=== PATIENT | female | born 1950 | race Caucasian/White ===

== ENCOUNTER 2016-12-30 06:29 | Day surgery (SDC) | payer MEDICARE, BC ==
--- NOTE | 2016-12-30 06:26 | PCM.PREANE ---
Preanesthetic Assessment - Anesthesia/Transfusion/Family Hx Anesthesia History: Prior Anesthesia Without Reaction Family History of Anesthesia Reaction: No Transfusion History: No Prior Transfusion(s) Intubation History: Unknown - Review of Systems General: No Symptoms Pulmonary: No Symptoms Cardiovascular: No Symptoms (HTN), Palpitations (on occasion), Dyspnea on Exertion Gastrointestinal: No symptoms (GERD), Constipation, Difficulty swallowing (c/o phlegm in back of throat) Neurological: No Symptoms, Headache Other: Reports: None (CKD III), Easy Bruising, Thyroid Problems (hypothyroid), Sinus Problem (Allergic rhinitis), Neck Pain - Physical Assessment NPO Status Date: 12/29/16 NPO Status Time: 20:00 Pulse: 88 O2 Sat by Pulse Oximetry: 97 Respiratory Rate: 16 Blood Pressure: 141/78 Temperature: 36.1 C Height: 1.55 m Weight: 100 kg ASA Class: 2 Mental Status: Alert & Oriented x3 Airway Class: Mallampati = 2 Dentition: Reports: Normal Dentition, Partial, [place](s), Caries Thyro-Mental Finger Breadths: 3 Mouth Opening Finger Breadths: 3 ROM/Head Extension: Full Lungs: Clear to auscultation, Normal respiratory effort Cardiovascular: Regular Rate, Regular Rhythm, No Murmurs - Lab Values: Laboratory Last Values MRSA (PCR) Negative 12/21/16 15:49 Lab values reviewed and noted with elevated CR and BUN noted. ALL values within acceptable ranges to proceed with scheduled procedure. - Imaging/EKG Impressions: EK01/14/2016, sinus rhythm rate 86, T wave inversion avL, baseline wander V3. - Allergies Allergies/Adverse Reactions: Allergies Allergy/AdvReac Type Severity Reaction Status Date / Time amoxicillin Allergy Hives Verified 12/29/16 15:25 clavulanic acid Allergy Hives Verified 12/29/16 15:25 - Anesthesia Plan Pre-Op Medication Ordered: None - Acknowledgements Anesthesia Type Planned: MAC Pt an Appropriate Candidate for the Planned Anesthesia: Yes Alternatives and Risks of Anesthesia Discussed w Pt/Guardian: Yes Pt/Guardian Understands and Agrees with Anesthesia Plan: Yes PreAnesthesia Questionnaire HEENT History: Reports: Allergic Rhinitis, Sinusitis Cardiovascular History: Reports: High Cholesterol, Hypertension Respiratory History: Reports: SOB Gastrointestinal History: Reports: Chronic Constipation, GERD Genitourinary History: Reports: Other (See Below) Other Genitourinary History: CKD III CLERICAL ORDER FILLER History: Reports: None Musculoskeletal History: Reports: Gout, Osteoarthritis, Other (See Below) Other Musculoskeletal History: cervical disc disease, lumbar degenerative disc disease, gangion cyst, sacroiliac pain Neurological History: Reports: None Psychiatric History: Reports: Other (See Below) Other Psychiatric History: insomnia Endocrine/Metabolic History: Reports: Hypothyroidism Hematologic History: Reports: None Immunologic History: Reports: None Oncologic (Cancer) History: Reports: None Dermatologic History: Reports: None - Past Surgical History HEENT Surgical History: Reports: Naso-Sinus Surgery Cardiovascular Surgical History: Reports: Varicose GI Surgical History: Reports: Colonoscopy, EGD Musculoskeletal Surgical History: Reports: Other (See Below) Other Musculoskeletal Surgeries/Procedures:: L knee arhtroscopy, L knee replacement, L4L5 microdiscectomy Oncologic Surgical History: Reports: None - SUBSTANCE USE Smoking Status *Q: Never Smoker Recreational Drug Use History: No - HOME MEDS Home Medications: Home Meds Allopurinol [Zyloprim] 300 mg PO DAILY 12/29/16 [History] Cyclobenzaprine HCl 10 mg PO BID PRN 12/29/16 [History] Fish Oil/[place]-3 Fatty Acids [Fish Oil 1,000 MG] 1 cap PO DAILY 12/29/16 [ History] Fluticasone Propionate 1 spray NASBOTH BID 12/29/16 [History] Furosemide 40 mg PO DAILY 12/29/16 [History] Gabapentin 300 mg PO DAILY 12/29/16 [History] Levothyroxine Sodium 50 mcg PO DAILY 12/29/16 [History] Omeprazole 20 mg PO DAILY 12/29/16 [History] Potassium Chloride 20 meq PO BID 12/29/16 [History] Valsartan/Hydrochlorothiazide [Valsartan-Hctz 160-12.5 mg Tab] 1 tab PO DAILY [History] Zolpidem Tartrate [Zolpidem Tartrate ER] 12.5 mg PO DAILY 12/29/16 [History] atorvaSTATin Calcium [Atorvastatin Calcium] 20 mg PO DAILY 12/29/16 [History] traZODone HCl [Trazodone HCl] 50 mg PO BEDTIME 12/29/16 [History] Hydrocodone/Acetaminophen [[place] 5-325 Tablet] 1 - 2 each PO Q6H PRN #10 tablet 12/30/16 [Rx] - CURRENT (IN HOUSE) MEDS Current Meds: Current Medications Lactated Ringer's (Ringers, Lactated) 1,000 mls @ 125 mls/hr IV ASDIRECTED NICOLAS Stop: 12/30/16 23:00 Lidocaine/Sodium Bicarbonate (Buffered Lidocaine 1% In Ns 8.4%) 0.25 ml .XX ONETIME PRN PRN Reason: Prior to IV Start Stop: 12/30/16 18:00 Sodium Chloride (Saline Flush) 10 ml FLUSH ASDIRECTED PRN PRN Reason: Keep Vein Open Stop: 12/30/16 18:00
[~2016-12-30 06:29] MED LIST: Lactated Ringers 1,000 ML IV SCH; Lidocaine 1%/Sod Bicarbonate in NS 8.4% 1 ML Syringe PRN; Sodium Chloride 0.9% 10 ML Syringe FLUSH PRN
[2016-12-30] MEDS ORDERED: Bupivacaine 0.25% 30 ML SDV ONE (06:49)
[2016-12-30] MEDS ORDERED: Lidocaine 1% 50 ML MDV ONE (06:49)
[2016-12-30] MEDS ORDERED: Lidocaine 1% 4 ML ONE (06:53)
[2016-12-30] MEDS ORDERED: fentaNYL 100 MCG/2 ML SDV ONE (06:54)
[2016-12-30] MEDS ORDERED: Propofol 200 MG/20 ML SDV ONE (06:54)
[2016-12-30] MEDS ORDERED: Midazolam 1 MG/ML 2 ML SDV ONE (06:54)
[2016-12-30] MEDS ORDERED: ceFAZolin 1 GM Vial ONE ×2 (06:56)
[2016-12-30] MEDS ORDERED: Ondansetron 4 MG/2 ML SDV IVPUSH PRN (07:29)
[2016-12-30] MEDS ORDERED: fentaNYL 100 MCG/2 ML SDV IVPUSH PRN (07:29)
--- NOTE | 2016-12-30 08:04 | PCM48HPAN ---
Post Anesthesia Note - EVALUATION WITHIN 48HRS OF ANESTHETIC Vital Signs in Normal Range: Yes Patient Participated in Evaluation: Yes Respiratory Function Stable: Yes Airway Patent: Yes Cardiovascular Function Stable: Yes Hydration Status Stable: Yes Pain Control Satisfactory: Yes Nausea and Vomiting Control Satisfactory: Yes Mental Status Recovered: Yes
[2016-12-30 08:06] VITALS: BP 101/70
--- NOTE | 2017-01-05 22:05 | PCM.OPNOTE ---
- General Post-Op/Procedure Note Date of Surgery/Procedure: 12/30/16 Operative Procedure(s): right ring finger pip joint mucinous cyst excision Pre Op Diagnosis: right long finger mucinous cyst PIP joint Post-Op Diagnosis: Same Anesthesia Technique: Local, MAC Primary Surgeon: Sree Christina Anesthesia Provider: Lillian Pino Chlorinator Operator: Yesi Fountain EBL in mLs: 5 Complications: None Condition: Good
--- NOTE | 2017-01-05 22:53 | OR ---
DATE OF OPERATION: 12/30/2016 SURGEON: Sree Christina MD OPERATION PERFORMED: Right long finger PIP joint mucinous cyst excision. PREOPERATIVE DIAGNOSIS: Right long finger mucinous cyst PIP joint. POSTOPERATIVE DIAGNOSIS: Right long finger mucinous cyst PIP joint. ANESTHESIA: Local MAC. ANESTHESIA PROVIDER: Lillian Pino. OCCUPATIONAL THERAPIST'S ASSISTANT: Yesi Fountain PA-C ESTIMATED BLOOD LOSS: 5 mL. COMPLICATIONS: None. CONDITION: Stable. DESCRIPTION OF PROCEDURE: The patient was identified in the preop holding area. Proper site was marked and identified by the surgeon. The patient was taken back to the operating theater, where after adequate anesthesia, the patient's right upper extremity was sterilely prepped and draped in the usual sterile fashion. OR time-out was performed. The patient received 2 g IV Ancef. At this time, the right upper extremity had Esmarch used as a tourniquet on the forearm and then using 0.25% Marcaine 1% lidocaine, a ring block was done around the right long finger along the flexor tendon sheath block. At this time, a dorsal lateral incision was made over the PIP joint. The blunt dissection was taken down to the joint capsule, there was noted to be mucinous cyst right at that level. Using a Napaimute blade, I was able to excise the cyst. The small rent in the capsule was identified. A small piece of bone spur was then rongeured off. The rent in the capsule was then sutured using 4-0 Vicryl and then 3-0 Vicryl was then used for the skin along with a 4-0 nylon. Adequate saline was irrigated over the wound. A sterile soft dressing was applied. The patient tolerated the procedure well and was sent to PACU in stable condition. MMODAL /[id number] LILLIAN
== END 2016-12-30 08:25 | disposition home or self-care (01) ==
LOC: JD.SDS 06:29
PROVIDERS: ATTEND Orthopaedic Surgery
DX: M25.841 Other specified joint disorders, right hand (principal); I12.9 Hypertensive chronic kidney disease with stage 1 through stage 4 chronic kidney disease, or unspecified chronic kidney disease; N18.3 Chronic kidney disease, stage 3 (moderate); E78.00 Pure hypercholesterolemia, unspecified; K21.9 Gastro-esophageal reflux disease without esophagitis; E03.9 Hypothyroidism, unspecified; Z88.1 Allergy status to other antibiotic agents; Z88.8 Allergy status to other drugs, medicaments and biological substances; Z96.652 Presence of left artificial knee joint; Z98.890 Other specified postprocedural states; Z79.899 Other long term (current) drug therapy
CPT/HCPCS: 26160; 87641; J0690; J2250; J3010; J7120; 01810; J2704; J3490

== ENCOUNTER 2019-08-15 06:33 | Inpatient (IN) | payer MEDICARE, BC ==
--- NOTE | 2019-08-14 12:05 | PCM.PREANE ---
Preanesthetic Assessment - Anesthesia/Transfusion/Family Hx Anesthesia History: Prior Anesthesia Without Reaction Family History of Anesthesia Reaction: No Transfusion History: No Prior Transfusion(s) Intubation History: Unknown - Review of Systems General: No Symptoms Pulmonary: No Symptoms (emphysematous changes noted on CXR) Cardiovascular: No Symptoms (HTN) Gastrointestinal: No Symptoms (GERD/small hiatal hernia noted), Constipation, Difficulty Swallowing ((c/o phlegm in back of throat)) Neurological: No Symptoms (History of chronic lower back pain 5/10 Right shoulder with mobility is 6/10.), Headache Other: Reports: None ((CKD III)), Easy Bruising, Thyroid Problems (hypothyroid) , Sinus Problem (allergic rhinitis), Neck Pain (History of Cervical disk disease ) - Physical Assessment NPO Status Date: 08/14/19 NPO Status Time: 20:30 Vital Signs: HR:87 BP:111/66 Sat:100% Temp:97.4 Resp:16 Height: 1.57 m Weight: 89.358 kg ASA Class: 2 Mental Status: Alert & Oriented x3 Airway Class: Mallampati = 2 Dentition: Reports: Normal Dentition, Dentures (bottom), Missing Tooth/Teeth, Caries Thyro-Mental Finger Breadths: 3 Mouth Opening Finger Breadths: 3 ROM/Head Extension: Full Lungs: Clear to Auscultation, Normal Respiratory Effort Cardiovascular: Regular Rate, Regular Rhythm, No Murmurs - Lab Values: Laboratory Last Values MRSA (PCR) Negative 08/01/19 14:46 All labs reviewed and noted and within acceptable ranges to proceed with scheduled procedure. - Imaging/EKG Impressions: CXR: small hiatal hernia, emphysematous changes noted. EKG: SR rate=89 - Allergies Allergies/Adverse Reactions: Allergies Allergy/AdvReac Type Severity Reaction Status Date / Time amoxicillin Allergy Hives Verified 08/14/19 15:42 clavulanic acid Allergy Hives Verified 08/14/19 15:42 - Anesthesia Plan Pre-Op Medication Ordered: Other (Preop Meds all p.o.: lyrica, oxycodone, tylenol @0705) - Acknowledgements Anesthesia Type Planned: General Anesthesia (Right ISB under US guidance for post operative pain control requested by Dr. Christina.) Pt an Appropriate Candidate for the Planned Anesthesia: Yes Alternatives and Risks of Anesthesia Discussed w Pt/Guardian: Yes Pt/Guardian Understands and Agrees with Anesthesia Plan: Yes PreAnesthesia Questionnaire HEENT History: Reports: Allergic Rhinitis, Sinusitis Cardiovascular History: Reports: High Cholesterol, Hypertension Respiratory History: Reports: SOB Gastrointestinal History: Reports: Chronic Constipation, GERD Genitourinary History: Reports: Other (See Below) Other Genitourinary History: CKD III CADET DECK History: Reports: None Musculoskeletal History: Reports: Gout, Osteoarthritis, Other (See Below) Other Musculoskeletal History: cervical disc disease, lumbar degenerative disc disease, gangion cyst, sacroiliac pain Neurological History: Reports: None Psychiatric History: Reports: Other (See Below) Other Psychiatric History: insomnia Endocrine/Metabolic History: Reports: Hypothyroidism Hematologic History: Reports: None Immunologic History: Reports: None Oncologic (Cancer) History: Reports: None Dermatologic History: Reports: None - Past Surgical History HEENT Surgical History: Reports: Naso-Sinus Surgery Cardiovascular Surgical History: Reports: Varicose GI Surgical History: Reports: Colonoscopy, EGD Musculoskeletal Surgical History: Reports: Other (See Below) Other Musculoskeletal Surgeries/Procedures:: L knee arhtroscopy, L knee replacement, L4L5 microdiscectomy Oncologic Surgical History: Reports: None - HOME MEDS Home Medications: Home Meds Allopurinol [Zyloprim] 300 mg PO DAILY 12/29/16 [History] Fish Oil/[place]-3 Fatty Acids [Fish Oil 1,000 MG] 1 cap PO DAILY 12/29/16 [ History] Furosemide 40 mg PO DAILY PRN 12/29/16 [History] Levothyroxine Sodium 50 mcg PO DAILY 12/29/16 [History] Potassium Chloride 20 meq PO DAILY PRN 12/29/16 [History] Zolpidem Tartrate [Zolpidem Tartrate ER] 12.5 mg PO DAILY 12/29/16 [History] atorvaSTATin Calcium [Atorvastatin Calcium] 20 mg PO DAILY 12/29/16 [History] traZODone HCl [Trazodone HCl] 50 mg PO BEDTIME 12/29/16 [History] Cholecalciferol (Vitamin D3) [Vitamin D3] 5,000 unit PO DAILY 08/14/19 [History] Cyclobenzaprine [Flexeril] 10 mg PO BID 08/14/19 [History] Diclofenac Sodium [Voltaren 1% Gel] 1 dose TOP QID 08/14/19 [History] Fluticasone Propionate [Flonase] 1 dose NASBOTH BID 08/14/19 [History] Losartan/Hydrochlorothiazide [Losartan-HCTZ 100-12.5 MG] 1 tab PO DAILY [History] Omeprazole 40 mg PO DAILY 08/14/19 [History] Triamcinolone Acetonide [Triamcinolone Acetonide 0.1% Crm] 1 dose TOP BID [History] - CURRENT (IN HOUSE) MEDS Current Meds: Current Medications Lactated Ringer's (Ringers, Lactated) 1,000 mls @ 125 mls/hr IV ASDIRECTED NICOLAS Stop: 08/15/19 23:00 Lidocaine/Sodium Bicarbonate (Buffered Lidocaine 1% In Ns 8.4%) 0.25 ml IDERM ONETIME PRN PRN Reason: Prior to IV Start Stop: 08/15/19 18:00 Sodium Chloride (Saline Flush) 10 ml FLUSH ASDIRECTED PRN PRN Reason: Keep Vein Open Stop: 08/15/19 18:00
[~2019-08-15 06:33] MED LIST changes: +Acetaminophen 325 MG Tab PO SCH; -Lactated Ringers 1,000 ML IV SCH; -Lidocaine 1%/Sod Bicarbonate in NS 8.4% 1 ML Syringe PRN; +Pregabalin 25 MG Cap PO SCH; -Sodium Chloride 0.9% 10 ML Syringe FLUSH PRN; +oxyCODONE ER 10 MG TAB.ER PO SCH
[2019-08-15] MEDS ORDERED: Ropivacaine 0.5% 5 MG/ML 30 ML SDV ONE (06:38)
[2019-08-15] MEDS ORDERED: EPINEPHrine 1 MG/ML SDV ONE (06:38)
[2019-08-15] MEDS ORDERED: Lidocaine 1% 2 ML ONE (06:38)
--- NOTE | 2019-08-15 06:46 | PCM.CONS ---
H&P History of Present Illness - General Date of Service: 08/15/19 Source of Information: Patient, Old Records, Provider, RN, RN Notes Reviewed History Limitations: Reports: No Limitations - History of Present Illness Initial Comments - Free Text/Narative: Tiara Azul is a 69 yo female patient of Dr. Christina who is post-operative day 0 of right RTSA. Hospital medicine was consulted for post-operative medical care of the following listed medical conditions. At this time she is resting comfortably in bed. Pain is controlled. She denies any chest pain, shortness of breath, palpitations, nausea, or vomiting. She carries a history of: Chronic LBP , CKD3, Osteopenia, GERD, GOUT, HLD, HTN, Hypothyroidism, Insomnia, Venous insufficiency, Venous stasis dermatitis, Anemia, Emphysema, Cervical disk disease, Lumbar DJD, sacroiliac pain, chronic constipation. She is a full code. Her primary care provider is Shirley Padilla NP. - Related Data Allergies/Adverse Reactions: Allergies Allergy/AdvReac Type Severity Reaction Status Date / Time amoxicillin Allergy Hives Verified 08/15/19 14:33 clavulanic acid Allergy Hives Verified 08/15/19 14:33 Home Medications: Home Meds Allopurinol [Zyloprim] 300 mg PO DAILY 12/29/16 [History] Fish Oil/[place]-3 Fatty Acids [Fish Oil 1,000 MG] 1 cap PO DAILY 12/29/16 [ History] Furosemide 40 mg PO DAILY PRN 12/29/16 [History] Levothyroxine Sodium 50 mcg PO DAILY 12/29/16 [History] Potassium Chloride 20 meq PO DAILY PRN 12/29/16 [History] Zolpidem Tartrate [Zolpidem Tartrate ER] 12.5 mg PO BEDTIME 12/29/16 [History] atorvaSTATin Calcium [Atorvastatin Calcium] 20 mg PO DAILY 12/29/16 [History] traZODone HCl [Trazodone HCl] 50 mg PO BEDTIME 12/29/16 [History] Cholecalciferol (Vitamin D3) [Vitamin D3] 5,000 unit PO DAILY 08/14/19 [History] Cyclobenzaprine [Flexeril] 10 mg PO BID 08/14/19 [History] Diclofenac Sodium [Voltaren 1% Gel] 1 dose TOP QID 08/14/19 [History] Fluticasone Propionate [Flonase] 1 dose NASBOTH BID 08/14/19 [History] Losartan/Hydrochlorothiazide [Losartan-HCTZ 100-12.5 MG] 1 tab PO DAILY [History] Omeprazole 40 mg PO DAILY 08/14/19 [History] Triamcinolone Acetonide [Triamcinolone Acetonide 0.1% Crm] 1 dose TOP BID [History] Past Medical History HEENT History: Reports: Allergic Rhinitis, Sinusitis Cardiovascular History: Reports: High Cholesterol, Hypertension Respiratory History: Reports: SOB Gastrointestinal History: Reports: Chronic Constipation, GERD Genitourinary History: Reports: Other (See Below) Other Genitourinary History: CKD III 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 History: Reports: None Musculoskeletal History: Reports: Arthritis, Gout, Osteoarthritis, Other (See Below) Other Musculoskeletal History: cervical disc disease, lumbar degenerative disc disease, gangion cyst, sacroiliac pain Neurological History: Reports: Other (See Below) Other Neuro History: cervical disc disease, lumbar degnerative disc disease, neck pain Psychiatric History: Reports: Other (See Below) Other Psychiatric History: insomnia Endocrine/Metabolic History: Reports: Hypothyroidism Hematologic History: Reports: Anemia Immunologic History: Reports: None Oncologic (Cancer) History: Reports: None Dermatologic History: Reports: Other (See Below) Other Dermatologic History: venous stasis dermatitis, perirectal abcess with I&D - Past Surgical History HEENT Surgical History: Reports: Naso-Sinus Surgery Cardiovascular Surgical History: Reports: Varicose Respiratory Surgical History: Reports: None GI Surgical History: Reports: Colonoscopy, EGD Female Surgical History: Reports: None Male Surgical History: Reports: None Endocrine Surgical History: Reports: None Other Neurological Surgeries/Procedures: 4 back surgery Musculoskeletal Surgical History: Reports: Knee Replacement, Other (See Below) Other Musculoskeletal Surgeries/Procedures:: L knee arhtroscopy, L knee replacement, L4L5 microdiscectomy Oncologic Surgical History: Reports: None Social & Family History - Tobacco Use Smoking Status *Q: Never Smoker Second Hand Smoke Exposure: No - Caffeine Use Caffeine Use: Reports: Coffee - Recreational Drug Use Recreational Drug Use: No H&P Review of Systems - Review of Systems: Review Of Systems: See Below General: Reports: No Symptoms. Denies: Fever, Chills HEENT: Reports: Sore Throat (mild). Denies: Headaches Pulmonary: Reports: No Symptoms. Denies: Shortness of Breath, Wheezing, Pleuritic Chest Pain, Cough, Sputum Cardiovascular: Reports: Edema (chronic left leg). Denies: Chest Pain, Palpitations, Dyspnea on Exertion Gastrointestinal: Reports: No Symptoms. Denies: Abdominal Pain, Constipation, Diarrhea, Nausea, Vomiting Genitourinary: Reports: No Symptoms. Denies: Pain Musculoskeletal: Reports: Shoulder Pain Skin: Reports: No Symptoms. Denies: Cyanosis Psychiatric: Reports: No Symptoms. Denies: Confusion Neurological: Reports: No Symptoms. Denies: Difficulty Walking, Weakness, Gait Disturbance Hematologic/Lymphatic: Reports: No Symptoms Immunologic: Reports: No Symptoms Exam - Exam Exam: See Below - Exam Quality Assessment: Supplemental Oxygen, DVT Prophylaxis General: Alert, Oriented, Cooperative. No: Mild Distress HEENT: Conjunctiva Clear, EACs Clear, EOMI, Hearing Intact, Mucosa Moist & [place] , Nares Patent, Posterior Pharynx Clear, PERRLA Neck: Supple, Trachea Midline Lungs: Clear to Auscultation, Normal Respiratory Effort Cardiovascular: Regular Rate, Regular Rhythm GI/Abdominal Exam: Normal Bowel Sounds, Soft, Non-Tender, No Distention (Female) Exam: Deferred Rectal (Female) Exam: Deferred Back Exam: Normal Inspection, Full Range of Motion Extremities: Normal Capillary Refill, Pedal Edema (left leg - chronic ), Arm Pain (Right shoulder ), Limited Range of Motion, Other (Bandage in place on right shoulder. Bandage is dry and intact. Cooling pack in place. Sling and swathe in place.) Peripheral Pulses: 2+: Radial (L), Radial (R), Dorsalis Pedis (L), Dorsalis Pedis (R) Skin: Warm, Dry, Intact Neurological: Cranial Nerves Intact (Grossly ) Neuro Extensive - Mental Status: Alert, Oriented x3, Normal Mood/Affect Consult PN Assessment/Plan POD#: 0 Procedures: Procedures AQUATIC THERAPY/EXERCISES (05/12/16) ASSAY OF BLOOD/URIC ACID (04/06/19) ASSAY OF CREATININE (09/16/14) ASSAY OF FERRITIN (06/29/19) ASSAY OF IRON (06/29/19) ASSAY OF PARATHORMONE (03/15/18) ASSAY OF PHOSPHORUS (06/17/16) ASSAY OF PROTEIN URINE (03/09/19) ASSAY OF SERUM ALBUMIN (06/17/16) ASSAY OF TRANSFERRIN (06/29/19) ASSAY OF URINE CREATININE (03/09/19) ASSAY THYROID STIM HORMONE (06/29/19) C-REACTIVE PROTEIN (04/06/19) COMPLETE CBC AUTOMATED (06/29/19) COMPLETE CBC W/AUTO DIFF WBC (03/09/19) COMPREHEN METABOLIC PANEL (06/29/19) DXA BONE DENSITY AXIAL (05/19/15) HPYLORI STOOL IA (06/06/18) LIPID PANEL (06/29/19) MANUAL THERAPY 1/> REGIONS (05/12/16) MASSAGE THERAPY (04/21/16) METABOLIC PANEL TOTAL CA (12/20/16) MICROBE SUSCEPTIBLE FABRICIO (11/23/13) MR-STAPH DNA AMP PROBE (12/30/16) MRI JOINT UPR EXTREM W/O DYE (06/18/19) MRI LUMBAR SPINE W/O DYE (07/13/19) NEUROMUSCULAR REEDUCATION (04/21/16) OFFICE/OUTPATIENT VISIT EST (06/05/18) OFFICE/OUTPATIENT VISIT EST (02/21/18) PT EVALUATION (03/24/16) RBC SED RATE AUTOMATED (04/06/19) REMOVE TENDON SHEATH LESION (12/30/16) RENAL FUNCTION PANEL (03/09/19) ROUTINE VENIPUNCTURE (06/29/19) THERAPEUTIC EXERCISES (05/12/16) THROMBOPLASTIN TIME PARTIAL (11/23/13) ULTRASOUND THERAPY (03/24/16) UR ALBUMIN QUANTITATIVE (09/29/16) URINALYSIS AUTO W/O SCOPE (03/30/16) URINALYSIS AUTO W/SCOPE (03/09/19) URINE BACTERIA CULTURE (11/23/13) US EXAM ABDO BACK WALL COMP (06/17/15) VITAMIN B-12 (12/25/18) VITAMIN D 25 HYDROXY (03/15/18) X-RAY EXAM HIP UNI 2-3 VIEWS (07/07/17) X-RAY EXAM NECK SPINE 2-3 VW (02/21/18) X-RAY EXAM SI JOINTS 3/> VWS (04/29/16) (1) S/p reverse total shoulder arthroplasty SNOMED Code(s): 443622789, 599835009 Code(s): Z96.619 - PRESENCE OF UNSPECIFIED ARTIFICIAL SHOULDER JOINT Priority: High Current Visit: Yes Qualifiers: Laterality: right Qualified Code(s): Z96.611 - Presence of right artificial shoulder joint (2) Osteoarthritis SNOMED Code(s): 304865441 Code(s): M19.90 - UNSPECIFIED OSTEOARTHRITIS, UNSPECIFIED SITE Priority: High Current Visit: Yes Qualifiers: Osteoarthritis location: shoulder Osteoarthritis type: primary Laterality : right Qualified Code(s): M19.011 - Primary osteoarthritis, right shoulder (3) Cervical spine disease SNOMED Code(s): 343423307 Code(s): M48.9 - SPONDYLOPATHY, UNSPECIFIED Priority: Low Current Visit: No (4) Chronic low back pain SNOMED Code(s): 644218055 Code(s): M54.5 - LOW BACK PAIN; G89.29 - OTHER CHRONIC PAIN Priority: Low Current Visit: No Qualifiers: Back pain laterality: unspecified Sciatica presence: unspecified whether sciatica present Qualified Code(s): M54.5 - Low back pain; G89.29 - Other chronic pain (5) CKD (chronic kidney disease) stage 3, GFR 30-59 ml/min SNOMED Code(s): 392916296 Code(s): N18.3 - CHRONIC KIDNEY DISEASE, STAGE 3 (MODERATE) Priority: Medium Current Visit: No (6) Osteopenia SNOMED Code(s): 281777913 Code(s): M85.80 - OTH DISRD OF BONE DENSITY AND STRUCTURE, UNSPECIFIED SITE Priority: Medium Current Visit: No Qualifiers: Osteopenia location: unspecified Qualified Code(s): M85.80 - Other specified disorders of bone density and structure, unspecified site (7) GERD (gastroesophageal reflux disease) SNOMED Code(s): 901020047 Code(s): K21.9 - GASTRO-ESOPHAGEAL REFLUX DISEASE WITHOUT ESOPHAGITIS Priority: Low Current Visit: No Qualifiers: Esophagitis presence: esophagitis presence not specified Qualified Code(s) : K21.9 - Gastro-esophageal reflux disease without esophagitis (8) Gout SNOMED Code(s): 41507299 Code(s): M10.9 - GOUT, UNSPECIFIED Priority: Low Current Visit: No Qualifiers: Gout site: unspecified site Gout etiology: unspecified cause Chronicity: unspecified Qualified Code(s): M10.9 - Gout, unspecified (9) HLD (hyperlipidemia) SNOMED Code(s): 72003183 Code(s): E78.5 - HYPERLIPIDEMIA, UNSPECIFIED Priority: Low Current Visit : No Qualifiers: Hyperlipidemia type: unspecified Qualified Code(s): E78.5 - Hyperlipidemia , unspecified (10) HTN (hypertension) SNOMED Code(s): 73366045 Code(s): I10 - ESSENTIAL (PRIMARY) HYPERTENSION Priority: Medium Current Visit: No Qualifiers: Hypertension type: unspecified Qualified Code(s): I10 - Essential (primary ) hypertension (11) Hypothyroidism SNOMED Code(s): 39412498 Code(s): E03.9 - HYPOTHYROIDISM, UNSPECIFIED Priority: Low Current Visit : No Qualifiers: Hypothyroidism type: unspecified Qualified Code(s): E03.9 - Hypothyroidism , unspecified (12) Insomnia SNOMED Code(s): 357545654 Code(s): G47.00 - INSOMNIA, UNSPECIFIED Priority: Low Current Visit: No Qualifiers: Insomnia type: unspecified Qualified Code(s): G47.00 - Insomnia, unspecified (13) Venous insufficiency SNOMED Code(s): 83297751 Code(s): I87.2 - VENOUS INSUFFICIENCY (CHRONIC) (PERIPHERAL) Priority: Low Current Visit: No (14) Venous stasis dermatitis SNOMED Code(s): 93935994 Code(s): I87.2 - VENOUS INSUFFICIENCY (CHRONIC) (PERIPHERAL) Priority: Low Current Visit: No Qualifiers: Laterality: unspecified laterality Qualified Code(s): I87.2 - Venous insufficiency (chronic) (peripheral) (15) Anemia SNOMED Code(s): 297737703 Code(s): D64.9 - ANEMIA, UNSPECIFIED Priority: Low Current Visit: No Qualifiers: Anemia type: unspecified type Qualified Code(s): D64.9 - Anemia, unspecified (16) Emphysema of lung SNOMED Code(s): 11100348 Code(s): J43.9 - EMPHYSEMA, UNSPECIFIED Current Visit: Yes (17) Chronic constipation SNOMED Code(s): 129593280 Code(s): K59.09 - OTHER CONSTIPATION Current Visit: Yes (18) Lumbar disc disease SNOMED Code(s): 567389671 Code(s): M51.9 - UNSP THORACIC, THORACOLUM AND LUMBOSACR INTVRT DISC DISORDER Current Visit: Yes Problem List Initiated/Reviewed/Updated: Yes Plan: I/P: Acute: S/P right reverse total shoulder arthroplasty - post-operative day 0 -DVT prophylaxis and pain management per primary care team -PT/OT -IS/RT -Monitor oxygen saturation -Titrate oxygen as needed -Home medications reviewed -Vital signs stable -Monitor labs -Pre-operative Hgb was 12.1 -Pre-operative GFR was 45 -Pre-operative creatinine was 1.2 Osteoarthritis of right shoulder -Pain management per primary care team Chronic: Chronic LBP CKD3 Osteopenia GERD GOUT HLD HTN Hypothyroidism Insomnia Venous insufficiency Venous stasis dermatitis Anemia Emphysema Cervical disk disease Lumbar DJD Sacroiliac pain Chronic constipation Plan: CM for discharge planning GI prophylaxis Home medications as indicated Other orders as listed above Routine AM labs She is a full code. Her PCP is Shirley Padilla NP Thank you for allowing us to participate in the care of this patient!! Requesting Provider: Dr. Christina Date Consult Requested: 08/15/19 Patient History Reviewed: Yes Admission H&P Reviewed: Yes Notified Requestor: Yes
[2019-08-15] MEDS ORDERED: Midazolam 1 MG/ML 2 ML SDV ONE (06:51)
[2019-08-15] MEDS ORDERED: Propofol 200 MG/20 ML SDV ONE (06:51)
[2019-08-15] MEDS ORDERED: Lactated Ringers 1,000 ML ONE ×2 (06:51→09:57)
[2019-08-15] MEDS ORDERED: Ondansetron 4 MG/2 ML SDV ONE (06:51)
[2019-08-15] MEDS ORDERED: Lidocaine 1% 6 ML ONE (06:51)
[2019-08-15] MEDS ORDERED: fentaNYL 250 MCG/5 ML SDV ONE (06:51)
[2019-08-15] MEDS ORDERED: Dexamethasone 4 MG/ML 5 ML MDV ONE (06:51)
[2019-08-15] MEDS ORDERED: Rocuronium 50 MG/5 ML Vial ONE (06:51)
[2019-08-15] MEDS ORDERED: Morphine 8 MG, EPINEPHrine 0.3 MG, Cefuroxime 750 MG, Ketorolac 30 MG, Sodium Chloride ... PRN ×5 (06:57)
[2019-08-15] MEDS ORDERED: Ketorolac 15 MG/ML SDV IVPUSH PRN (06:57)
[2019-08-15] MEDS ORDERED: Sennosides 8.6 MG Tab PO PRN (06:59)
[2019-08-15] MEDS ORDERED: Ondansetron 4 MG/2 ML SDV IVPUSH PRN ×2 (06:59→09:00)
[2019-08-15] MEDS ORDERED: Magnesium Hydroxide 400 MG/5 ML Susp 30 ML Cup PO PRN (06:59)
[2019-08-15] MEDS ORDERED: Naloxone 0.4 MG/ML SDV IVPUSH PRN (06:59)
[2019-08-15] MEDS ORDERED: Bisacodyl 5 MG Tab PO PRN (06:59)
[2019-08-15] MEDS ORDERED: Lactated Ringers 1,000 ML IV SCH (07:00)
[2019-08-15] MEDS ORDERED: Lidocaine 1%/Sod Bicarbonate in NS 8.4% 1 ML Syringe IDERM PRN (07:00)
[2019-08-15] MEDS ORDERED: Sodium Chloride 0.9% 10 ML Syringe FLUSH PRN (07:00)
[2019-08-15] MEDS ORDERED: ceFAZolin 1 GM Vial ONE (07:29)
--- NOTE | 2019-08-15 08:07 | PCM.SN ---
- Free Text/Narrative Note: Date: 08/15/2019 Time Out: 0740 Start: 0740 Stop: 0750 Surgical Procedure: Right Reverse Total Shoulder Arthroplasty Diagnosis Right Shoulder OA Current Procedure: Right interscalene block under US guidance for postoperative pain control requested by Dr. Christina. Patient chart reviewed, risk/benefits discussed with patient, consent obtained. Patient positioned supine, monitors/alarms on, oxygen placed via nasal cannula at 2 LPM. IV sedation administered: Versed 1mg IV, Fentanyl 50mcg IV given in preop prior to block placement. Right shoulder prepped with two chloropreps. Sterile drapes placed with aseptic technique noted. Under US guidance, right subclavian artery visualized along with the right brachial plexus. Plexus followed up to C6 cricoid level, and area localized with 2mls of 1% lidocaine. 22gauge 2 inch stimiplex needle advanced under US with 0.6mV with stimulation of biceps noted. Good stimulation noted with decreased voltage and absent at 0.3mVs. 1ml of Normal Saline injected with loss of stimulation noted to confirm needle not placed intraneurally. Incremental dosing of 5mls with negative aspiration noted prior to each injection of 0.5% ropivacaine with 1:200,000 epinephrine. Total volume=30mls. Please refer to nurses noted for vital signs. Lillian Pino CRNA
[2019-08-15] MEDS ORDERED: ePHEDrine 50 MG/ML SDV IVPUSH PRN (09:00)
[2019-08-15] MEDS ORDERED: fentaNYL 100 MCG/2 ML SDV IVPUSH PRN (09:00)
[2019-08-15] MEDS ORDERED: diphenhydrAMINE 50 MG/ML SDV IVPUSH PRN (09:00)
[2019-08-15] MEDS ORDERED: HYDROmorphone 0.5 MG/0.5 ML Syringe IVPUSH PRN (09:00)
[2019-08-15] MEDS ORDERED: Albuterol 0.083% 2.5 MG/3 ML Neb Soln NEB PRN (09:00)
[2019-08-15] MEDS ORDERED: Phenylephrine 1 MG in Sodium Chloride 0.9% 10 ML IV PRN (09:00)
[2019-08-15] MEDS: Iodine/Sodium Iodide 2% Tincture 30 ML Bottle ONE ×2 (09:35→09:54)
[2019-08-15] MEDS: ceFAZolin 1 GM Vial ONE ×2 (09:35→09:56)
[2019-08-15] MEDS: Vancomycin 1 GM SDV ONE ×2 (09:37→10:02)
[2019-08-15] MEDS ORDERED: Potassium Chloride 20 MEQ Tab.ER PO PRN (10:40)
--- NOTE | 2019-08-15 10:46 | PCM.POSTAN ---
POST ANESTHESIA ASSESSMENT - MENTAL STATUS Mental Status: Alert - VITAL SIGNS Vital Signs: Last Vital Signs Temp 97.8 08/15/19 1036 Pulse 80 08/15/19 1036 Resp 10 08/15/19 1036 BP 131/76 08/15/19 1036 Pulse Ox 95% 08/15/19 1036 - RESPIRATORY Respiratory Status: Respiratory Rate WNL, Airway Patent, O2 Saturation Stable, Supplemental Oxygen - CARDIOVASCULAR CV Status: Pulse Rate WNL, Blood Pressure Stable - GASTROINTESTINAL GI Status: No Symptoms - POST OP HYDRATION Hydration Status: Adequate & Stable
--- NOTE | 2019-08-15 12:11 | CR ---
Right shoulder: Portable supine view of the right shoulder was obtained. Comparison: Previous MRI right shoulder study of 06/18/19. Findings: Reverse right shoulder prosthesis is seen. Components are aligned. Underlying bony structures are intact. Impression: 1. Recently placed right shoulder prosthesis. Diagnostic code #2 This report was dictated in [place] Standard Time
--- NOTE | 2019-08-15 12:11 | CR ---
Right shoulder: Single fluoroscopic spot view was obtained of the right shoulder utilizing C-arm device. Study shows placement of a reversed right shoulder prosthesis. Components are aligned on this study. Underlying bony structures are grossly intact. Fluoroscopy time given as 2.3 seconds. Impression: 1. Procedural study as noted above. Diagnostic code #2 This report was dictated in [place] Standard Time
[2019-08-15] MEDS: Acetaminophen 325 MG Tab PO PRN (12:23)
[2019-08-15] MEDS ORDERED: Diclofenac Sodium 1% Gel 100 GM Tube TOP SCH (13:00)
[2019-08-15] MEDS: ceFAZolin 2 GM in Premix Bag 1 BAG IV SCH ×2 (15:25→22:52)
[2019-08-15] MEDS ORDERED: Diclofenac Sodium 1% Gel 100 GM Tube TOP PRN (16:00)
[2019-08-15] MEDS: Acetaminophen/oxyCODONE 325-5 MG Tab PO PRN ×2 (18:29→22:45)
[2019-08-15] MEDS: Docusate Sodium 100 MG Cap PO SCH (20:45)
[2019-08-15] MEDS ORDERED: Famotidine 20 MG Tab PO SCH (21:00)
[2019-08-15] MEDS ORDERED: FLUTICASONE NASAL NASBOTH SCH (21:00)
[2019-08-15] MEDS ORDERED: traZODone 50 MG Tab PO SCH (21:00)
[2019-08-15] MEDS: Triamcinolone Acetonide 0.1% Crm 15 GM Tube TOP SCH (21:10)
[2019-08-15] MEDS: Cyclobenzaprine 10 MG Tab PO PRN (22:45)
[2019-08-16] MEDS: Morphine 2 MG/ML Syringe IVPUSH PRN ×2 (02:19→04:29)
[2019-08-16] MEDS: Acetaminophen/oxyCODONE 325-5 MG Tab PO PRN ×2 (03:52→09:29)
[2019-08-16] MEDS ORDERED: Levothyroxine 50 MCG Tab PO SCH (06:00)
[2019-08-16] MEDS: ceFAZolin 2 GM in Premix Bag 1 BAG IV SCH (06:40)
[2019-08-16] MEDS ORDERED: Pantoprazole 40 MG Tab.CR PO SCH (07:00)
--- NOTE | 2019-08-16 07:40 | PCM.CONSN ---
- General Info Date of Service: 08/16/19 Functional Status: Reports: Pain Controlled, Tolerating Diet, Ambulating, Urinating, Incentive Spirometry. Denies: New Symptoms - Review of Systems General: Reports: No Symptoms. Denies: Fever, Chills HEENT: Reports: No Symptoms. Denies: Headaches, Sore Throat Pulmonary: Reports: No Symptoms. Denies: Shortness of Breath, Pleuritic Chest Pain, Cough, Sputum, Wheezing Cardiovascular: Reports: No Symptoms. Denies: Chest Pain, Palpitations Gastrointestinal: Reports: No Symptoms. Denies: Abdominal Pain, Constipation, Diarrhea, Nausea, Vomiting Genitourinary: Reports: No Symptoms. Denies: Pain Musculoskeletal: Reports: Shoulder Pain (right ) Skin: Reports: No Symptoms. Denies: Cyanosis Neurological: Reports: No Symptoms. Denies: Confusion, Difficulty Walking, Gait Disturbance Psychiatric: Reports: No Symptoms - Patient Data Vitals - Most Recent: Last Vital Signs Temp 97.9 F 08/15/19 15:58 Pulse 88 08/15/19 15:58 Resp 18 08/15/19 15:56 BP 99/66 08/15/19 15:56 Pulse Ox 97 08/15/19 15:58 Weight - Most Recent: 197 lb I&O - Last 24 Hours: Intake & Output 08/15/19 08/16/19 08/16/19 22:59 06:59 14:59 Intake Total 750 Output Total 200 Balance 550 Lab Results Last 24 Hours: Laboratory Results - last 24 hr 08/16/19 08/16/19 Range/Units 05:51 05:51 WBC 8.45 (3.98-10.04) K/mm3 RBC 2.68 L (3.98-5.22) M/mm3 Hgb 8.4 L D (11.2-15.7) gm/dl Hct 27.9 L (34.1-44.9) % MCV 104.1 H (79.4-94.8) fl MCH 31.3 (25.6-32.2) pg MCHC 30.1 L (32.2-35.5) g/dl RDW Std Deviation 49.0 H (36.4-46.3) fL Plt Count 204 (182-369) K/mm3 MPV 10.7 (9.4-12.3) fl Sodium 140 (136-145) mEq/L Potassium 3.7 (3.5-5.1) mEq/L Chloride 105 (98-107) mEq/L Carbon Dioxide 27 (21-32) mEq/L Anion Gap 11.7 (5-15) BUN 15 (7-18) mg/dL Creatinine 1.2 H (0.55-1.02) mg/dL Est Cr Clr Drug Dosing 34.99 mL/min Estimated GFR (MDRD) 45 (>60) mL/min BUN/Creatinine Ratio 12.5 L (14-18) Glucose 114 (80-115) mg/dL Calcium 8.8 (8.5-10.1) mg/dL Total Bilirubin 0.3 (0.2-1.0) mg/dL AST 21 (15-37) U/L ALT 14 (14-59) U/L Alkaline Phosphatase 81 (46-116) U/L Total Protein 5.3 L (6.4-8.2) g/dl Albumin 2.7 L (3.4-5.0) g/dl Globulin 2.6 gm/dL Albumin/Globulin Ratio 1.0 (1-2) Med Orders - Current: Current Medications Acetaminophen (Tylenol) 650 mg PO Q4H PRN PRN Reason: Pain/Fever Last Admin: 08/15/19 12:23 Dose: 650 mg Allopurinol (Zyloprim) 300 mg PO DAILY [facility] Aspirin (Ecotrin) 325 mg PO DAILY [facility] Bisacodyl (Dulcolax) 5 mg PO DAILY PRN PRN Reason: Constipation Cholecalciferol (Vitamin D3) 5,000 unit PO DAILY [facility] Cyclobenzaprine HCl (Flexeril) 10 mg PO TID PRN PRN Reason: Spasms Last Admin: 08/15/19 22:45 Dose: 10 mg Diclofenac Sodium (Voltaren 1% Gel) 0 gm TOP QID PRN PRN Reason: Pain Docusate Sodium (Colace) 100 mg PO BID [facility] Last Admin: 08/15/19 20:45 Dose: 100 mg Hydrochlorothiazide (Hydrochlorothiazide) 12.5 mg PO DAILY [facility] Cefazolin Sodium/Dextrose 2 gm (/ Premix) 50 mls @ 100 mls/hr IV Q8H [facility] Stop: 08/16/19 07:59 Last Admin: 08/16/19 06:40 Dose: 100 mls/hr Levothyroxine Sodium (Synthroid) 50 mcg PO ACBREAKFAST [facility] Last Admin: 08/16/19 05:31 Dose: 50 mcg Losartan Potassium (Cozaar) 100 mg PO DAILY [facility] Magnesium Hydroxide (Milk Of Magnesia) 30 ml PO BID PRN PRN Reason: Constipation Morphine Sulfate (Morphine) 2 mg IVPUSH Q2H PRN PRN Reason: Breakthrough Pain Last Admin: 08/16/19 04:29 Dose: 2 mg Naloxone HCl (Narcan) 0.1 mg IVPUSH Q5M PRN PRN Reason: Oversedation Ondansetron HCl (Zofran) 4 mg IVPUSH Q6H PRN PRN Reason: Nausea/Vomiting Oxycodone/Acetaminophen (Percocet 325-5 Mg) 1 - 2 tab PO Q4H PRN PRN Reason: Pain Last Admin: 08/16/19 03:52 Dose: 2 tab Pantoprazole Sodium (Protonix) 40 mg PO DAILY@0700 [facility] Last Admin: 08/16/19 06:40 Dose: 40 mg Fluticasone Nasal 0 each NASBOTH BID [facility] Last Admin: 08/15/19 22:26 Dose: Not Given Potassium Chloride (Klor-Con M20) 20 meq PO DAILY PRN PRN Reason: fluid retention Senna (Senna) 8.6 mg PO BID PRN PRN Reason: Constipation Simvastatin (Zocor) 20 mg PO DAILY [facility] Trazodone HCl (Trazodone) 50 mg PO BEDTIME [facility] Last Admin: 08/15/19 20:45 Dose: 50 mg Triamcinolone Acetonide (Triamcinolone Acetonide 0.1% Crm) 0 gm TOP BID [facility] Last Admin: 08/15/19 21:10 Dose: Not Given Discontinued Medications Acetaminophen (Tylenol) 975 mg PO NOW [facility] Last Admin: 08/15/19 07:05 Dose: 975 mg Albuterol (Proventil Neb Soln) 2.5 mg NEB ONETIME PRN PRN Reason: improve oxygenation Stop: 08/15/19 18:00 Cefazolin Sodium (Ancef) Confirm Administered Dose 2 gm .ROUTE .STK-MED ONE Stop: 08/15/19 06:52 Last Admin: 08/15/19 09:56 Dose: 2 gm Cefazolin Sodium (Ancef) Confirm Administered Dose 2 gm .ROUTE .STK-MED ONE Stop: 08/15/19 07:30 Morphine Sulfate 8 mg/Epinephrine HCl 0.3 mg/Cefuroxime Sodium 750 mg/Ketorolac Tromethamine 30 mg/Sodium Chloride 7.9 ml 0 mg .XX ASDIRECTED PRN PRN Reason: Pain Dexamethasone (Dexamethasone) Confirm Administered Dose 20 mg .ROUTE .STK-MED ONE Stop: 08/15/19 06:52 Diclofenac Sodium (Voltaren 1% Gel) 0 gm TOP QID [facility] Last Admin: 08/15/19 16:32 Dose: Not Given Diphenhydramine HCl (Benadryl) 25 mg IVPUSH Q6H PRN PRN Reason: pruritis Stop: 08/15/19 18:00 Ephedrine Sulfate (Ephedrine Sulfate) 5 mg IVPUSH ASDIRECTED PRN PRN Reason: Hypotension Stop: 08/15/19 18:00 Epinephrine HCl (Adrenalin) Confirm Administered Dose 1 mg .ROUTE .STK-MED ONE Stop: 08/15/19 06:39 Famotidine (Pepcid) 20 mg PO Q12H [facility] Fentanyl (Sublimaze) Confirm Administered Dose 250 mcg .ROUTE .STK-MED ONE Stop: 08/15/19 06:52 Fentanyl (Sublimaze) 50 mcg IVPUSH Q5M PRN PRN Reason: Pain Stop: 08/15/19 18:00 Glycopyrrolate () Confirm Administered Dose 1 mg .ROUTE .STK-MED ONE Stop: 08/15/19 09:05 Hydromorphone HCl (Dilaudid) 0.5 mg IVPUSH Q15M PRN PRN Reason: Pain (severe 7-10) Stop: 08/15/19 18:00 Lactated Ringer's (Ringers, Lactated) 1,000 mls @ 125 mls/hr IV ASDIRECTED [facility] Stop: 08/15/19 23:00 Last Admin: 08/15/19 06:55 Dose: 125 mls/hr Lidocaine HCl (Xylocaine-Mpf 1%) Confirm Administered Dose 2 mls @ as directed .ROUTE .STK-MED ONE Stop: 08/15/19 06:39 Lidocaine HCl (Xylocaine-Mpf 1%) Confirm Administered Dose 6 mls @ as directed .ROUTE .STK-MED ONE Stop: 08/15/19 06:52 Lactated Ringer's (Ringers, Lactated) Confirm Administered Dose 1,000 mls @ as directed .ROUTE .STK-MED ONE Stop: 08/15/19 06:52 Phenylephrine HCl 1 mg/ Sodium (Chloride) 10.1 mls @ 1 mls/sec IV TITRATE PRN; Protocol PRN Reason: HYPOTENSION Stop: 08/15/19 18:00 Lactated Ringer's (Ringers, Lactated) Confirm Administered Dose 1,000 mls @ as directed .ROUTE .STK-MED ONE Stop: 08/15/19 09:58 Iodine (Iodine 2% Mild Tincture) Confirm Administered Dose 30 ml .ROUTE .STK- MED ONE Stop: 08/15/19 07:30 Last Admin: 08/15/19 09:54 Dose: 18 ml Lidocaine/Sodium Bicarbonate (Buffered Lidocaine 1% In Ns 8.4%) 0.25 ml IDERM ONETIME PRN PRN Reason: Prior to IV Start Stop: 08/15/19 18:00 Last Admin: 08/15/19 06:55 Dose: 0.25 ml Midazolam HCl (Versed 1 Mg/Ml) Confirm Administered Dose 2 mg .ROUTE .STK-MED ONE Stop: 08/15/19 06:52 Miscellaneous Medication (Phenylephrine 1 Mg/10 Ml-Ns) Confirm Administered Dose 1 mg IV .STK-MED ONE Stop: 08/15/19 06:53 Neostigmine Methylsulfate (Neostigmine Methylsulfate) Confirm Administered Dose 5 mg .ROUTE .STK-MED ONE Stop: 08/15/19 09:05 Ondansetron HCl (Zofran) Confirm Administered Dose 4 mg .ROUTE .STK-MED ONE Stop: 08/15/19 06:52 Ondansetron HCl (Zofran) 4 mg IVPUSH ONETIME PRN PRN Reason: Nausea/Vomiting Stop: 08/15/19 18:00 Oxycodone HCl (Oxycontin) 10 mg PO ONETIME [facility] Last Admin: 08/15/19 07:05 Dose: 10 mg Pregabalin (Lyrica) 50 mg PO ONETIME [facility] Stop: 08/15/19 12:30 Last Admin: 08/15/19 07:05 Dose: 50 mg Propofol (Diprivan 20 Ml) Confirm Administered Dose 200 mg .ROUTE .STK-MED ONE Stop: 08/15/19 06:52 Rocuronium [place] (Zemuron) Confirm Administered Dose 50 mg .ROUTE .STK-MED ONE Stop: 08/15/19 06:52 Ropivacaine (Naropin 0.5%) Confirm Administered Dose 30 ml .ROUTE .STK-MED ONE Stop: 08/15/19 06:39 Sodium Chloride (Saline Flush) 10 ml FLUSH ASDIRECTED PRN PRN Reason: Keep Vein Open Stop: 08/15/19 18:00 Tranexamic Acid (Cyklokapron) Confirm Administered Dose 1,000 mg .ROUTE .STK- MED ONE Stop: 08/15/19 07:30 Last Admin: 08/15/19 10:02 Dose: 1,000 mg Vancomycin HCl (Vancomycin) Confirm Administered Dose 1 gm .ROUTE .STK-MED ONE Stop: 08/15/19 07:30 Last Admin: 08/15/19 10:02 Dose: 1 gm - Exam Quality Assessment: DVT Prophylaxis. No: Supplemental Oxygen, Urine Catheter General: Alert, Oriented, Cooperative, No Acute Distress HEENT: Pupils Equal, Pupils Reactive, Mucous Membr. Moist/[place] Neck: Supple, Trachea Midline Lungs: Clear to Auscultation, Normal Respiratory Effort Cardiovascular: Regular Rate, Regular Rhythm GI/Abdominal Exam: Normal Bowel Sounds, Soft, Non-Tender, No Distention (Female) Exam: Deferred Back Exam: Normal Inspection, Full Range of Motion Extremities: Normal Capillary Refill, Arm Pain (right shoulder ), Limited Range of Motion, Other (Bandage in place on right shoulder. Cooling pack in place. Sling and swathe in place. ) Peripheral Pulses: 2+: Radial (L), Radial (R), Dorsalis Pedis (L), Dorsalis Pedis (R) Skin: Warm, Dry, Intact Wound/Incisions: Dressing Dry and Intact Neurological: No New Focal Deficit Psy/Mental Status: Alert, Normal Affect, Normal Mood Sepsis Event Note - Evaluation Sepsis Screening Result: No Definite Risk Consult PN Assessment/Plan POD#: 1 Procedures: Procedures AQUATIC THERAPY/EXERCISES (05/12/16) ASSAY OF BLOOD/URIC ACID (04/06/19) ASSAY OF CREATININE (09/16/14) ASSAY OF FERRITIN (06/29/19) ASSAY OF IRON (06/29/19) ASSAY OF PARATHORMONE (03/15/18) ASSAY OF PHOSPHORUS (06/17/16) ASSAY OF PREALBUMIN (08/13/19) ASSAY OF PROTEIN URINE (03/09/19) ASSAY OF SERUM ALBUMIN (06/17/16) ASSAY OF TRANSFERRIN (06/29/19) ASSAY OF URINE CREATININE (03/09/19) ASSAY THYROID STIM HORMONE (06/29/19) C-REACTIVE PROTEIN (04/06/19) COMPLETE CBC AUTOMATED (08/13/19) COMPLETE CBC W/AUTO DIFF WBC (03/09/19) COMPREHEN METABOLIC PANEL (08/13/19) DXA BONE DENSITY AXIAL (05/19/15) HPYLORI STOOL IA (06/06/18) LIPID PANEL (06/29/19) MANUAL THERAPY 1/> REGIONS (05/12/16) MASSAGE THERAPY (04/21/16) METABOLIC PANEL TOTAL CA (12/20/16) MICROBE SUSCEPTIBLE FABRICIO (11/23/13) MR-STAPH DNA AMP PROBE (12/30/16) MRI JOINT UPR EXTREM W/O DYE (06/18/19) MRI LUMBAR SPINE W/O DYE (07/13/19) NEUROMUSCULAR REEDUCATION (04/21/16) OFFICE/OUTPATIENT VISIT EST (06/05/18) OFFICE/OUTPATIENT VISIT EST (02/21/18) PROTHROMBIN TIME (08/13/19) PT EVALUATION (03/24/16) RBC SED RATE AUTOMATED (04/06/19) REMOVE TENDON SHEATH LESION (12/30/16) RENAL FUNCTION PANEL (03/09/19) ROUTINE VENIPUNCTURE (08/13/19) THERAPEUTIC EXERCISES (05/12/16) THROMBOPLASTIN TIME PARTIAL (08/13/19) ULTRASOUND THERAPY (03/24/16) UR ALBUMIN QUANTITATIVE (09/29/16) URINALYSIS AUTO W/O SCOPE (03/30/16) URINALYSIS AUTO W/SCOPE (03/09/19) URINE BACTERIA CULTURE (11/23/13) US EXAM ABDO BACK WALL COMP (06/17/15) VITAMIN B-12 (12/25/18) VITAMIN D 25 HYDROXY (03/15/18) X-RAY EXAM CHEST 2 VIEWS (08/13/19) X-RAY EXAM HIP UNI 2-3 VIEWS (07/07/17) X-RAY EXAM NECK SPINE 2-3 VW (02/21/18) X-RAY EXAM SI JOINTS 3/> VWS (04/29/16) (1) S/p reverse total shoulder arthroplasty SNOMED Code(s): 096153829, 167771457 Code(s): Z96.619 - PRESENCE OF UNSPECIFIED ARTIFICIAL SHOULDER JOINT Priority: High Current Visit: Yes Qualifiers: Laterality: right Qualified Code(s): Z96.611 - Presence of right artificial shoulder joint (2) Osteoarthritis SNOMED Code(s): 600355884 Code(s): M19.90 - UNSPECIFIED OSTEOARTHRITIS, UNSPECIFIED SITE Priority: High Current Visit: Yes Qualifiers: Osteoarthritis location: shoulder Osteoarthritis type: primary Laterality : right Qualified Code(s): M19.011 - Primary osteoarthritis, right shoulder (3) Cervical spine disease SNOMED Code(s): 842715113 Code(s): M48.9 - SPONDYLOPATHY, UNSPECIFIED Priority: Low Current Visit: No (4) Chronic low back pain SNOMED Code(s): 458019704 Code(s): M54.5 - LOW BACK PAIN; G89.29 - OTHER CHRONIC PAIN Priority: Low Current Visit: No Qualifiers: Back pain laterality: unspecified Sciatica presence: unspecified whether sciatica present Qualified Code(s): M54.5 - Low back pain; G89.29 - Other chronic pain (5) CKD (chronic kidney disease) stage 3, GFR 30-59 ml/min SNOMED Code(s): 737031769 Code(s): N18.3 - CHRONIC KIDNEY DISEASE, STAGE 3 (MODERATE) Priority: Medium Current Visit: No (6) Osteopenia SNOMED Code(s): 389876828 Code(s): M85.80 - OTH DISRD OF BONE DENSITY AND STRUCTURE, UNSPECIFIED SITE Priority: Medium Current Visit: No Qualifiers: Osteopenia location: unspecified Qualified Code(s): M85.80 - Other specified disorders of bone density and structure, unspecified site (7) GERD (gastroesophageal reflux disease) SNOMED Code(s): 182129296 Code(s): K21.9 - GASTRO-ESOPHAGEAL REFLUX DISEASE WITHOUT ESOPHAGITIS Priority: Low Current Visit: No Qualifiers: Esophagitis presence: esophagitis presence not specified Qualified Code(s) : K21.9 - Gastro-esophageal reflux disease without esophagitis (8) Gout SNOMED Code(s): 87541971 Code(s): M10.9 - GOUT, UNSPECIFIED Priority: Low Current Visit: No Qualifiers: Gout site: unspecified site Gout etiology: unspecified cause Chronicity: unspecified Qualified Code(s): M10.9 - Gout, unspecified (9) HLD (hyperlipidemia) SNOMED Code(s): 17380120 Code(s): E78.5 - HYPERLIPIDEMIA, UNSPECIFIED Priority: Low Current Visit : No Qualifiers: Hyperlipidemia type: unspecified Qualified Code(s): E78.5 - Hyperlipidemia , unspecified (10) HTN (hypertension) SNOMED Code(s): 51777594 Code(s): I10 - ESSENTIAL (PRIMARY) HYPERTENSION Priority: Medium Current Visit: No Qualifiers: Hypertension type: unspecified Qualified Code(s): I10 - Essential (primary ) hypertension (11) Hypothyroidism SNOMED Code(s): 95211823 Code(s): E03.9 - HYPOTHYROIDISM, UNSPECIFIED Priority: Low Current Visit : No Qualifiers: Hypothyroidism type: unspecified Qualified Code(s): E03.9 - Hypothyroidism , unspecified (12) Insomnia SNOMED Code(s): 651427816 Code(s): G47.00 - INSOMNIA, UNSPECIFIED Priority: Low Current Visit: No Qualifiers: Insomnia type: unspecified Qualified Code(s): G47.00 - Insomnia, unspecified (13) Venous insufficiency SNOMED Code(s): 15351157 Code(s): I87.2 - VENOUS INSUFFICIENCY (CHRONIC) (PERIPHERAL) Priority: Low Current Visit: No (14) Venous stasis dermatitis SNOMED Code(s): 20394610 Code(s): I87.2 - VENOUS INSUFFICIENCY (CHRONIC) (PERIPHERAL) Priority: Low Current Visit: No Qualifiers: Laterality: unspecified laterality Qualified Code(s): I87.2 - Venous insufficiency (chronic) (peripheral) (15) Anemia SNOMED Code(s): 020413743 Code(s): D64.9 - ANEMIA, UNSPECIFIED Priority: Low Current Visit: No Qualifiers: Anemia type: unspecified type Qualified Code(s): D64.9 - Anemia, unspecified (16) Emphysema of lung SNOMED Code(s): 55912247 Code(s): J43.9 - EMPHYSEMA, UNSPECIFIED Current Visit: Yes (17) Chronic constipation SNOMED Code(s): 207949780 Code(s): K59.09 - OTHER CONSTIPATION Current Visit: Yes (18) Lumbar disc disease SNOMED Code(s): 815466154 Code(s): M51.9 - UNSP THORACIC, THORACOLUM AND LUMBOSACR INTVRT DISC DISORDER Current Visit: Yes Problem List Initiated/Reviewed/Updated: Yes Plan: I/P: Acute: S/P right reverse total shoulder arthroplasty - post-operative day 1 -DVT prophylaxis and pain management per primary care team -PT/OT -IS/RT -Monitor oxygen saturation -Titrate oxygen as needed -Home medications reviewed -Vital signs stable -Monitor labs -Pre-operative Hgb was 12.1; Now 8.4 -Pre-operative GFR was 45; Now 45 -Pre-operative creatinine was 1.2, Now 1.2 Osteoarthritis of right shoulder -Pain management per primary care team Chronic: Chronic LBP CKD3 Osteopenia GERD GOUT HLD HTN Hypothyroidism Insomnia Venous insufficiency Venous stasis dermatitis Anemia Emphysema Cervical disk disease Lumbar DJD Sacroiliac pain Chronic constipation Plan: CM for discharge planning GI prophylaxis Home medications as indicated Other orders as listed above Routine AM labs She is a full code. Her PCP is Shirley Padilla NP From a hospitalist standpoint Tiara is doing well. She has been up ambulating and working with therapies. She is off of oxygen and has urinated. She has been utilizing her IS. Her vital signs remain stable. Her hemoglobin did drop a bit and we recommend follow-up with her PCP for recheck early next week. Pain is controlled. She is cleared for discharge pending primary team and PT/OT agreement. Thank you for allowing us to participate in the care of this patient!!
[2019-08-16 08:51] VITALS: PULSE 86
[2019-08-16] MEDS ORDERED: Simvastatin 20 MG Tab PO SCH (09:00)
[2019-08-16] MEDS ORDERED: Allopurinol 300 MG Tab PO SCH (09:00)
[2019-08-16] MEDS ORDERED: Cholecalciferol (Vitamin D3) 5,000 UNIT Tab PO SCH (09:00)
[2019-08-16] MEDS ORDERED: Aspirin 325 MG Tab.EC PO SCH (09:00)
[2019-08-16] MEDS ORDERED: Hydrochlorothiazide 12.5 MG Cap PO SCH (09:00)
[2019-08-16] MEDS ORDERED: Losartan 100 MG Tab PO SCH (09:00)
[2019-08-16] MEDS: Docusate Sodium 100 MG Cap PO SCH (09:10)
[2019-08-16] MEDS: Triamcinolone Acetonide 0.1% Crm 15 GM Tube TOP SCH (09:21)
[2019-08-16] MEDS: Acetaminophen 325 MG Tab PO PRN (11:55)
[2019-08-16] MEDS: Cyclobenzaprine 10 MG Tab PO PRN (11:57)
[2019-08-16 12:48] VITALS: BP 100/56
--- NOTE | 2019-08-16 14:05 | PCM.SURGPN ---
- General Info Date of Service: 08/16/19 POD#: 1 Functional Status: Reports: Pain Controlled, Tolerating Diet, Ambulating, Urinating, Incentive Spirometry - Patient Data Vitals - Most Recent: Last Vital Signs Temp 99.0 F 08/16/19 11:27 Pulse 86 08/16/19 07:57 Resp 16 08/16/19 11:27 BP 100/56 L 08/16/19 11:27 Pulse Ox 93 L 08/16/19 07:57 Weight - Most Recent: 197 lb I&O - Last 24 Hours: Intake & Output 08/15/19 08/16/19 08/16/19 22:59 06:59 14:59 Intake Total 750 800 360 Output Total 200 550 Balance 550 250 360 Lab Results Last 24 Hrs: Laboratory Results - last 24 hr 08/16/19 08/16/19 Range/Units 05:51 05:51 WBC 8.45 (3.98-10.04) K/mm3 RBC 2.68 L (3.98-5.22) M/mm3 Hgb 8.4 L D (11.2-15.7) gm/dl Hct 27.9 L (34.1-44.9) % MCV 104.1 H (79.4-94.8) fl MCH 31.3 (25.6-32.2) pg MCHC 30.1 L (32.2-35.5) g/dl RDW Std Deviation 49.0 H (36.4-46.3) fL Plt Count 204 (182-369) K/mm3 MPV 10.7 (9.4-12.3) fl Sodium 140 (136-145) mEq/L Potassium 3.7 (3.5-5.1) mEq/L Chloride 105 (98-107) mEq/L Carbon Dioxide 27 (21-32) mEq/L Anion Gap 11.7 (5-15) BUN 15 (7-18) mg/dL Creatinine 1.2 H (0.55-1.02) mg/dL Est Cr Clr Drug Dosing 34.99 mL/min Estimated GFR (MDRD) 45 (>60) mL/min BUN/Creatinine Ratio 12.5 L (14-18) Glucose 114 (80-115) mg/dL Calcium 8.8 (8.5-10.1) mg/dL Total Bilirubin 0.3 (0.2-1.0) mg/dL AST 21 (15-37) U/L ALT 14 (14-59) U/L Alkaline Phosphatase 81 (46-116) U/L Total Protein 5.3 L (6.4-8.2) g/dl Albumin 2.7 L (3.4-5.0) g/dl Globulin 2.6 gm/dL Albumin/Globulin Ratio 1.0 (1-2) Med Orders - Current: Current Medications Acetaminophen (Tylenol) 650 mg PO Q4H PRN PRN Reason: Pain/Fever Last Admin: 08/16/19 11:55 Dose: 650 mg Allopurinol (Zyloprim) 300 mg PO DAILY [facility] Last Admin: 08/16/19 09:12 Dose: 300 mg Aspirin (Ecotrin) 325 mg PO DAILY [facility] Last Admin: 08/16/19 09:14 Dose: 325 mg Bisacodyl (Dulcolax) 5 mg PO DAILY PRN PRN Reason: Constipation Last Admin: 08/16/19 09:29 Dose: 5 mg Cholecalciferol (Vitamin D3) 5,000 unit PO DAILY [facility] Last Admin: 08/16/19 09:10 Dose: 5,000 unit Cyclobenzaprine HCl (Flexeril) 10 mg PO TID PRN PRN Reason: Spasms Last Admin: 08/16/19 11:57 Dose: 10 mg Diclofenac Sodium (Voltaren 1% Gel) 0 gm TOP QID PRN PRN Reason: Pain Docusate Sodium (Colace) 100 mg PO BID [facility] Last Admin: 08/16/19 09:10 Dose: 100 mg Hydrochlorothiazide (Hydrochlorothiazide) 12.5 mg PO DAILY [facility] Last Admin: 08/16/19 09:11 Dose: 12.5 mg Levothyroxine Sodium (Synthroid) 50 mcg PO ACBREAKFAST [facility] Last Admin: 08/16/19 05:31 Dose: 50 mcg Losartan Potassium (Cozaar) 100 mg PO DAILY [facility] Last Admin: 08/16/19 09:10 Dose: 100 mg Magnesium Hydroxide (Milk Of Magnesia) 30 ml PO BID PRN PRN Reason: Constipation Morphine Sulfate (Morphine) 2 mg IVPUSH Q2H PRN PRN Reason: Breakthrough Pain Last Admin: 08/16/19 04:29 Dose: 2 mg Naloxone HCl (Narcan) 0.1 mg IVPUSH Q5M PRN PRN Reason: Oversedation Ondansetron HCl (Zofran) 4 mg IVPUSH Q6H PRN PRN Reason: Nausea/Vomiting Oxycodone/Acetaminophen (Percocet 325-5 Mg) 1 - 2 tab PO Q4H PRN PRN Reason: Pain Last Admin: 08/16/19 09:29 Dose: 1 tab Pantoprazole Sodium (Protonix) 40 mg PO DAILY@0700 [facility] Last Admin: 08/16/19 06:40 Dose: 40 mg Fluticasone Nasal 0 each NASBOTH BID [facility] Last Admin: 08/15/19 22:26 Dose: Not Given Potassium Chloride (Klor-Con M20) 20 meq PO DAILY PRN PRN Reason: fluid retention Senna (Senna) 8.6 mg PO BID PRN PRN Reason: Constipation Simvastatin (Zocor) 20 mg PO DAILY [facility] Last Admin: 08/16/19 09:10 Dose: 20 mg Trazodone HCl (Trazodone) 50 mg PO BEDTIME [facility] Last Admin: 08/15/19 20:45 Dose: 50 mg Triamcinolone Acetonide (Triamcinolone Acetonide 0.1% Crm) 0 gm TOP BID [facility] Last Admin: 08/16/19 09:21 Dose: 1 squirt Discontinued Medications Acetaminophen (Tylenol) 975 mg PO NOW [facility] Last Admin: 08/15/19 07:05 Dose: 975 mg Albuterol (Proventil Neb Soln) 2.5 mg NEB ONETIME PRN PRN Reason: improve oxygenation Stop: 08/15/19 18:00 Cefazolin Sodium (Ancef) Confirm Administered Dose 2 gm .ROUTE .STK-MED ONE Stop: 08/15/19 06:52 Last Admin: 08/15/19 09:56 Dose: 2 gm Cefazolin Sodium (Ancef) Confirm Administered Dose 2 gm .ROUTE .STK-MED ONE Stop: 08/15/19 07:30 Morphine Sulfate 8 mg/Epinephrine HCl 0.3 mg/Cefuroxime Sodium 750 mg/Ketorolac Tromethamine 30 mg/Sodium Chloride 7.9 ml 0 mg .XX ASDIRECTED PRN PRN Reason: Pain Dexamethasone (Dexamethasone) Confirm Administered Dose 20 mg .ROUTE .STK-MED ONE Stop: 08/15/19 06:52 Diclofenac Sodium (Voltaren 1% Gel) 0 gm TOP QID [facility] Last Admin: 08/15/19 16:32 Dose: Not Given Diphenhydramine HCl (Benadryl) 25 mg IVPUSH Q6H PRN PRN Reason: pruritis Stop: 08/15/19 18:00 Ephedrine Sulfate (Ephedrine Sulfate) 5 mg IVPUSH ASDIRECTED PRN PRN Reason: Hypotension Stop: 08/15/19 18:00 Epinephrine HCl (Adrenalin) Confirm Administered Dose 1 mg .ROUTE .STK-MED ONE Stop: 08/15/19 06:39 Famotidine (Pepcid) 20 mg PO Q12H [facility] Fentanyl (Sublimaze) Confirm Administered Dose 250 mcg .ROUTE .STK-MED ONE Stop: 08/15/19 06:52 Fentanyl (Sublimaze) 50 mcg IVPUSH Q5M PRN PRN Reason: Pain Stop: 08/15/19 18:00 Glycopyrrolate () Confirm Administered Dose 1 mg .ROUTE .STK-MED ONE Stop: 08/15/19 09:05 Hydromorphone HCl (Dilaudid) 0.5 mg IVPUSH Q15M PRN PRN Reason: Pain (severe 7-10) Stop: 08/15/19 18:00 Lactated Ringer's (Ringers, Lactated) 1,000 mls @ 125 mls/hr IV ASDIRECTED [facility] Stop: 08/15/19 23:00 Last Admin: 08/15/19 06:55 Dose: 125 mls/hr Lidocaine HCl (Xylocaine-Mpf 1%) Confirm Administered Dose 2 mls @ as directed .ROUTE .STK-MED ONE Stop: 08/15/19 06:39 Lidocaine HCl (Xylocaine-Mpf 1%) Confirm Administered Dose 6 mls @ as directed .ROUTE .STK-MED ONE Stop: 08/15/19 06:52 Lactated Ringer's (Ringers, Lactated) Confirm Administered Dose 1,000 mls @ as directed .ROUTE .STK-MED ONE Stop: 08/15/19 06:52 Cefazolin Sodium/Dextrose 2 gm (/ Premix) 50 mls @ 100 mls/hr IV Q8H [facility] Stop: 08/16/19 07:59 Last Admin: 08/16/19 06:40 Dose: 100 mls/hr Phenylephrine HCl 1 mg/ Sodium (Chloride) 10.1 mls @ 1 mls/sec IV TITRATE PRN; Protocol PRN Reason: HYPOTENSION Stop: 08/15/19 18:00 Lactated Ringer's (Ringers, Lactated) Confirm Administered Dose 1,000 mls @ as directed .ROUTE .STK-MED ONE Stop: 08/15/19 09:58 Iodine (Iodine 2% Mild Tincture) Confirm Administered Dose 30 ml .ROUTE .STK- MED ONE Stop: 08/15/19 07:30 Last Admin: 08/15/19 09:54 Dose: 18 ml Lidocaine/Sodium Bicarbonate (Buffered Lidocaine 1% In Ns 8.4%) 0.25 ml IDERM ONETIME PRN PRN Reason: Prior to IV Start Stop: 08/15/19 18:00 Last Admin: 08/15/19 06:55 Dose: 0.25 ml Midazolam HCl (Versed 1 Mg/Ml) Confirm Administered Dose 2 mg .ROUTE .STK-MED ONE Stop: 08/15/19 06:52 Miscellaneous Medication (Phenylephrine 1 Mg/10 Ml-Ns) Confirm Administered Dose 1 mg IV .STK-MED ONE Stop: 08/15/19 06:53 Neostigmine Methylsulfate (Neostigmine Methylsulfate) Confirm Administered Dose 5 mg .ROUTE .STK-MED ONE Stop: 08/15/19 09:05 Ondansetron HCl (Zofran) Confirm Administered Dose 4 mg .ROUTE .STK-MED ONE Stop: 08/15/19 06:52 Ondansetron HCl (Zofran) 4 mg IVPUSH ONETIME PRN PRN Reason: Nausea/Vomiting Stop: 08/15/19 18:00 Oxycodone HCl (Oxycontin) 10 mg PO ONETIME [facility] Last Admin: 08/15/19 07:05 Dose: 10 mg Pregabalin (Lyrica) 50 mg PO ONETIME [facility] Stop: 08/15/19 12:30 Last Admin: 08/15/19 07:05 Dose: 50 mg Propofol (Diprivan 20 Ml) Confirm Administered Dose 200 mg .ROUTE .STK-MED ONE Stop: 08/15/19 06:52 Rocuronium [place] (Zemuron) Confirm Administered Dose 50 mg .ROUTE .STK-MED ONE Stop: 08/15/19 06:52 Ropivacaine (Naropin 0.5%) Confirm Administered Dose 30 ml .ROUTE .STK-MED ONE Stop: 08/15/19 06:39 Sodium Chloride (Saline Flush) 10 ml FLUSH ASDIRECTED PRN PRN Reason: Keep Vein Open Stop: 08/15/19 18:00 Tranexamic Acid (Cyklokapron) Confirm Administered Dose 1,000 mg .ROUTE .STK- MED ONE Stop: 08/15/19 07:30 Last Admin: 08/15/19 10:02 Dose: 1,000 mg Vancomycin HCl (Vancomycin) Confirm Administered Dose 1 gm .ROUTE .STK-MED ONE Stop: 08/15/19 07:30 Last Admin: 08/15/19 10:02 Dose: 1 gm - Exam Wound/Incisions: Dressing Dry and Intact General: Alert, Cooperative, No Acute Distress Lungs: Normal Respiratory Effort Extremities: Other (NVS intact for BUE.) Sepsis Event Note - Evaluation Sepsis Screening Result: No Definite Risk - Focused Exam Vital Signs: Vital Signs Temp Pulse Resp BP Pulse Ox 08/16/19 11:27 99.0 F 16 100/56 L 08/16/19 09:10 102/56 L 08/16/19 07:57 98.4 F 86 12 102/56 L 93 L 08/16/19 03:58 98.6 F 91 12 106/58 L 94 L Date Exam was Performed: 08/16/19 Time Exam was Performed: 14:03 - Problem List Review Problem List Initiated/Reviewed/Updated: Yes - My Orders Last 24 Hours: Active Orders 24 hr Category Date Time Status Ready for Discharge [RC] PER UNIT ROUTINE Care 08/16/19 11:01 Active Aspirin [Ecotrin] Med 08/16/19 09:00 Active 325 mg PO DAILY Cholecalciferol (Vitamin D3) [Vitamin D3] Med 08/16/19 09:00 Active 5,000 unit PO DAILY Diclofenac Sodium [Voltaren 1% Gel] Med 08/15/19 16:00 Active 0 gm TOP QID PRN Docusate Sodium [Colace] Med 08/15/19 21:00 Active 100 mg PO BID Levothyroxine [Synthroid] Med 08/16/19 06:00 Active 50 mcg PO ACBREAKFAST Losartan [Cozaar] Med 08/16/19 09:00 Active 100 mg PO DAILY Pantoprazole [ProTONIX] Med 08/16/19 07:00 Active 40 mg PO DAILY@0700 Patient's Own Medication [Ptom] Med 08/15/19 21:00 Active 0 each NASBOTH BID Simvastatin [Zocor] Med 08/16/19 09:00 Active 20 mg PO DAILY Triamcinolone Acetonide [Triamcinolone Acetonide 0.1% Med 08/15/19 21:00 Active Crm] 0 gm TOP BID allopurinoL [Zyloprim] Med 08/16/19 09:00 Active 300 mg PO DAILY hydroCHLOROthiazide Med 08/16/19 09:00 Active 12.5 mg PO DAILY traZODone Med 08/15/19 21:00 Active 50 mg PO BEDTIME Medication Orders Acetaminophen (Tylenol) 650 mg PO Q4H PRN PRN Reason: Pain/Fever Last Admin: 08/16/19 11:55 Dose: 650 mg Admin: 08/15/19 12:23 Dose: 650 mg Allopurinol (Zyloprim) 300 mg PO DAILY [facility] Last Admin: 08/16/19 09:12 Dose: 300 mg Aspirin (Ecotrin) 325 mg PO DAILY [facility] Last Admin: 08/16/19 09:14 Dose: 325 mg Bisacodyl (Dulcolax) 5 mg PO DAILY PRN PRN Reason: Constipation Last Admin: 08/16/19 09:29 Dose: 5 mg Cholecalciferol (Vitamin D3) 5,000 unit PO DAILY [facility] Last Admin: 08/16/19 09:10 Dose: 5,000 unit Cyclobenzaprine HCl (Flexeril) 10 mg PO TID PRN PRN Reason: Spasms Last Admin: 08/16/19 11:57 Dose: 10 mg Admin: 08/15/19 22:45 Dose: 10 mg Diclofenac Sodium (Voltaren 1% Gel) 0 gm TOP QID PRN PRN Reason: Pain Docusate Sodium (Colace) 100 mg PO BID [facility] Last Admin: 08/16/19 09:10 Dose: 100 mg Admin: 08/15/19 20:45 Dose: 100 mg Hydrochlorothiazide (Hydrochlorothiazide) 12.5 mg PO DAILY [facility] Last Admin: 08/16/19 09:11 Dose: 12.5 mg Levothyroxine Sodium (Synthroid) 50 mcg PO ACBREAKFAST [facility] Last Admin: 08/16/19 05:31 Dose: 50 mcg Losartan Potassium (Cozaar) 100 mg PO DAILY [facility] Last Admin: 08/16/19 09:10 Dose: 100 mg Magnesium Hydroxide (Milk Of Magnesia) 30 ml PO BID PRN PRN Reason: Constipation Morphine Sulfate (Morphine) 2 mg IVPUSH Q2H PRN PRN Reason: Breakthrough Pain Last Admin: 08/16/19 04:29 Dose: 2 mg Admin: 08/16/19 02:19 Dose: 2 mg Naloxone HCl (Narcan) 0.1 mg IVPUSH Q5M PRN PRN Reason: Oversedation Ondansetron HCl (Zofran) 4 mg IVPUSH Q6H PRN PRN Reason: Nausea/Vomiting Oxycodone/Acetaminophen (Percocet 325-5 Mg) 1 - 2 tab PO Q4H PRN PRN Reason: Pain Last Admin: 08/16/19 09:29 Dose: 1 tab Admin: 08/16/19 03:52 Dose: 2 tab Admin: 08/15/19 22:45 Dose: 2 tab Admin: 08/15/19 18:29 Dose: 2 tab Pantoprazole Sodium (Protonix) 40 mg PO DAILY@0700 [facility] Last Admin: 08/16/19 06:40 Dose: 40 mg Fluticasone Nasal 0 each NASBOTH BID [facility] Last Admin: 08/15/19 22:26 Dose: Potassium Chloride (Klor-Con M20) 20 meq PO DAILY PRN PRN Reason: fluid retention Senna (Senna) 8.6 mg PO BID PRN PRN Reason: Constipation Simvastatin (Zocor) 20 mg PO DAILY [facility] Last Admin: 08/16/19 09:10 Dose: 20 mg Trazodone HCl (Trazodone) 50 mg PO BEDTIME [facility] Last Admin: 08/15/19 20:45 Dose: 50 mg Triamcinolone Acetonide (Triamcinolone Acetonide 0.1% Crm) 0 gm TOP BID [facility] Last Admin: 08/16/19 09:21 Dose: 1 squirt Admin: 08/15/19 21:10 Dose: Not Given - Assessment Assessment (Free Text/Narrative):: POD#1 - right reverse TSA - Plan Plan (Free Text/Narrative):: 1. Hgb 8.4. 2. 325 mg ASA PO daily, frequent mobility, TEDs. 3. Discharge to home today. 4. Outpatient therapy. The pt was evaluated by Dr. Christina today.
--- NOTE | 2019-08-16 14:07 | PCM.DCSUM1 ---
Discharge Summary - Hospital Course Brief History: Tiara is a 69 yo female who underwent right reverse TSA with Dr. Christina on 08-15-2019. The procedure was completed under general anesthesia with regional block. The pt tolerated the procedure well and was admitted to the Medical-Surgical Unit. The pt received Ancef pili-operatively. She participated in P.T. and O.T. and progressed well. The pt's pain was controlled with PO medications. The pt's surgical wound was dressed with a Mepilex dressing and remained clean and dry. On POD#1, the pt was started on 325mg ASA daily for VTE prophylaxis. The pt used TEDs and SCDs also. On POD#1 , the pt's hemoglobin was 8.4. Medical management was provided by the Hospitalist service and the pt's hospital course was uneventful. On POD#1, the pt was deemed appropriate for discharge to home. - Discharge Data Discharge Date: 08/16/19 Discharge Disposition: Home, Self-Care 01 Condition: Good - Referral to Home Health Primary Care Physician: Shirley Padilla NP - Patient Summary/Data Consults: Consultations 08/15/19 06:57 OT Evaluation and Treatment [CONS] Routine PT Evaluation and Treatment [CONS] Routine 08/15/19 06:59 Consult to Physician [CONS] Routine - Patient Instructions Diet: Usual Diet as Tolerated Activity: Apply Ice, As Tolerated, Elevate Extremity Activity, Other: No forceful use of the surgical limb. Driving: Do Not Drive Showering/Bathing: May Shower Wound/Incision Care: Keep Operative Site/Wound Site Clean and Dry, Do NOT Change Dressing Notify Provider of: Fever, Increased Pain, Swelling and Redness, Drainage, Nausea and/or Vomiting Other/Special Instructions: Please get up and moving around EVERY HOUR while awake. This helps to prevent blood clots. Please use your walker and have help with mobility as needed. Take a short walk in your home every hour while awake. Please take 325mg Aspirin daily. The aspirin is being used for blood clot prevention and not for pain management so please do not miss a dose of the medication. You could use a medication like Pepcid or Tagamet and a medication like Prilosec or Nexium to protect your stomach while you are using the aspirin. At home, please complete the exercises that you learned during the Hospital stay. Schedule for physical or occupational therapy. Use the pain medication as needed. The medication may cause drowsiness and constipation. Contact your primary care provider for instructions if you are constipated. You may use a stool softener like docusate sodium or Colace 100mg twice daily and/or a laxative like Miralax daily for constipation. Increase your water and fiber intake while you are using the pain medication. Discontinue use of the pain medication as soon as able. Please do not use other medications that may cause drowsiness (other pain medications, anxiety pills, cold medications, sleeping pills, etc) while using the prescription pain medication. Do not use alcohol while using the pain medication. You may use acetaminophen or Tylenol for pain management, however, please ensure you are not using over 4000 mg or 4 grams of acetaminophen per day from all sources. Your pain medication has 325mg of acetaminophen per tablet. Wear the JOHN hose during the day and you may remove these at night. Elevate the limb to decrease swelling. Place ice to the area often. Place a towel between your skin and the blue pad. Use the incentive spirometer often. Take deep breaths throughout the day. Please keep the dressing in place until follow-up. Notify the Clinic if the dressing becomes saturated. Increase your protein intake while you are healing. If you have diabetes, please closely monitor your blood sugars and notify your primary care provider with abnormal values. Elevated blood sugars increases the risk of infection. Please follow-up with your primary care provider to monitor your blood count (hemoglobin). Call the Clinic with questions or concerns - [phone]. Follow-up with PCP early next week for Hgb re-check. - Discharge Plan *PRESCRIPTION DRUG MONITORING PROGRAM REVIEWED*: No *COPY OF PRESCRIPTION DRUG MONITORING REPORT IN PATIENT HELENA: No Prescriptions/Med Rec: Acetaminophen/oxyCODONE [Percocet 325-5 MG] 1 - 2 tab PO Q4H PRN #60 tablet PRN Reason: Pain Aspirin [Ecotrin EC] 325 mg PO DAILY #30 tab.ec Cyclobenzaprine [Flexeril] 10 mg PO TID PRN #40 tablet PRN Reason: Spasms Home Medications: Home Meds Allopurinol [Zyloprim] 300 mg PO DAILY 12/29/16 [History] Furosemide 40 mg PO DAILY PRN 12/29/16 [History] Levothyroxine Sodium 50 mcg PO DAILY 12/29/16 [History] Potassium Chloride 20 meq PO BID PRN 12/29/16 [History] atorvaSTATin Calcium [Atorvastatin Calcium] 20 mg PO DAILY 12/29/16 [History] traZODone HCl [Trazodone HCl] 50 mg PO BEDTIME 12/29/16 [History] Cholecalciferol (Vitamin D3) [Vitamin D3] 5,000 unit PO DAILY 08/14/19 [History] Diclofenac Sodium [Voltaren 1% Gel] 1 dose TOP QID PRN 08/14/19 [History] Fluticasone Propionate [Flonase] 1 spray NASBOTH BID 08/14/19 [History] Losartan/Hydrochlorothiazide [Losartan-HCTZ 100-12.5 MG] 1 tab PO DAILY [History] Omeprazole 40 mg PO DAILY 08/14/19 [History] Triamcinolone Acetonide [Triamcinolone Acetonide 0.1% Crm] 1 dose TOP BID [History] Acetaminophen/oxyCODONE [Percocet 325-5 MG] 1 - 2 tab PO Q4H PRN #60 tablet [Rx] Aspirin [Ecotrin EC] 325 mg PO DAILY #30 tab.ec 08/16/19 [Rx] Cyclobenzaprine [Flexeril] 10 mg PO TID PRN #40 tablet 08/16/19 [Rx] Docusate Sodium [Colace] 100 mg PO BID cap 08/16/19 [Rx] Sennosides [Senna] 8.6 mg PO BID PRN tablet 08/16/19 [Rx] bisacodyL [Dulcolax] 5 mg PO DAILY PRN tablet 08/16/19 [Rx] Patient Handouts: Shoulder Joint Replacement, Care After Referrals: Shirley Padilla, EMT/DISPATCHER [Primary Care Provider] - 08/24/19 11:00 am ([facility]. [facility] Yesi Fountain PA-C [Physician Cook Helper [employer]erves] - (08/22/19 at 1:15pm w/ ANKITA Key 08/29/19 at 1:15pm w/ ANKITA Key 09/26/19 at 12pm w/ ANKITA Key ) - Discharge Summary/Plan Comment DC Time >30 min.: No - Patient Data Vitals - Most Recent: Last Vital Signs Temp 99.0 F 08/16/19 11:27 Pulse 86 08/16/19 07:57 Resp 16 08/16/19 11:27 BP 100/56 L 08/16/19 11:27 Pulse Ox 93 L 08/16/19 07:57 Weight - Most Recent: 197 lb I&O - Last 24 hours: Intake & Output 08/15/19 08/16/19 08/16/19 22:59 06:59 14:59 Intake Total 750 800 360 Output Total 200 550 Balance 550 250 360 Lab Results - Last 24 hrs: Laboratory Results - last 24 hr 08/16/19 08/16/19 Range/Units 05:51 05:51 WBC 8.45 (3.98-10.04) K/mm3 RBC 2.68 L (3.98-5.22) M/mm3 Hgb 8.4 L D (11.2-15.7) gm/dl Hct 27.9 L (34.1-44.9) % MCV 104.1 H (79.4-94.8) fl MCH 31.3 (25.6-32.2) pg MCHC 30.1 L (32.2-35.5) g/dl RDW Std Deviation 49.0 H (36.4-46.3) fL Plt Count 204 (182-369) K/mm3 MPV 10.7 (9.4-12.3) fl Sodium 140 (136-145) mEq/L Potassium 3.7 (3.5-5.1) mEq/L Chloride 105 (98-107) mEq/L Carbon Dioxide 27 (21-32) mEq/L Anion Gap 11.7 (5-15) BUN 15 (7-18) mg/dL Creatinine 1.2 H (0.55-1.02) mg/dL Est Cr Clr Drug Dosing 34.99 mL/min Estimated GFR (MDRD) 45 (>60) mL/min BUN/Creatinine Ratio 12.5 L (14-18) Glucose 114 (80-115) mg/dL Calcium 8.8 (8.5-10.1) mg/dL Total Bilirubin 0.3 (0.2-1.0) mg/dL AST 21 (15-37) U/L ALT 14 (14-59) U/L Alkaline Phosphatase 81 (46-116) U/L Total Protein 5.3 L (6.4-8.2) g/dl Albumin 2.7 L (3.4-5.0) g/dl Globulin 2.6 gm/dL Albumin/Globulin Ratio 1.0 (1-2) Med Orders - Current: Current Medications Acetaminophen (Tylenol) 650 mg PO Q4H PRN PRN Reason: Pain/Fever Last Admin: 08/16/19 11:55 Dose: 650 mg Allopurinol (Zyloprim) 300 mg PO DAILY [facility] Last Admin: 08/16/19 09:12 Dose: 300 mg Aspirin (Ecotrin) 325 mg PO DAILY [facility] Last Admin: 08/16/19 09:14 Dose: 325 mg Bisacodyl (Dulcolax) 5 mg PO DAILY PRN PRN Reason: Constipation Last Admin: 08/16/19 09:29 Dose: 5 mg Cholecalciferol (Vitamin D3) 5,000 unit PO DAILY [facility] Last Admin: 08/16/19 09:10 Dose: 5,000 unit Cyclobenzaprine HCl (Flexeril) 10 mg PO TID PRN PRN Reason: Spasms Last Admin: 08/16/19 11:57 Dose: 10 mg Diclofenac Sodium (Voltaren 1% Gel) 0 gm TOP QID PRN PRN Reason: Pain Docusate Sodium (Colace) 100 mg PO BID [facility] Last Admin: 08/16/19 09:10 Dose: 100 mg Hydrochlorothiazide (Hydrochlorothiazide) 12.5 mg PO DAILY [facility] Last Admin: 08/16/19 09:11 Dose: 12.5 mg Levothyroxine Sodium (Synthroid) 50 mcg PO ACBREAKFAST [facility] Last Admin: 08/16/19 05:31 Dose: 50 mcg Losartan Potassium (Cozaar) 100 mg PO DAILY [facility] Last Admin: 08/16/19 09:10 Dose: 100 mg Magnesium Hydroxide (Milk Of Magnesia) 30 ml PO BID PRN PRN Reason: Constipation Morphine Sulfate (Morphine) 2 mg IVPUSH Q2H PRN PRN Reason: Breakthrough Pain Last Admin: 08/16/19 04:29 Dose: 2 mg Naloxone HCl (Narcan) 0.1 mg IVPUSH Q5M PRN PRN Reason: Oversedation Ondansetron HCl (Zofran) 4 mg IVPUSH Q6H PRN PRN Reason: Nausea/Vomiting Oxycodone/Acetaminophen (Percocet 325-5 Mg) 1 - 2 tab PO Q4H PRN PRN Reason: Pain Last Admin: 08/16/19 09:29 Dose: 1 tab Pantoprazole Sodium (Protonix) 40 mg PO DAILY@0700 [facility] Last Admin: 08/16/19 06:40 Dose: 40 mg Fluticasone Nasal 0 each NASBOTH BID [facility] Last Admin: 08/15/19 22:26 Dose: Not Given Potassium Chloride (Klor-Con M20) 20 meq PO DAILY PRN PRN Reason: fluid retention Senna (Senna) 8.6 mg PO BID PRN PRN Reason: Constipation Simvastatin (Zocor) 20 mg PO DAILY [facility] Last Admin: 08/16/19 09:10 Dose: 20 mg Trazodone HCl (Trazodone) 50 mg PO BEDTIME [facility] Last Admin: 08/15/19 20:45 Dose: 50 mg Triamcinolone Acetonide (Triamcinolone Acetonide 0.1% Crm) 0 gm TOP BID [facility] Last Admin: 08/16/19 09:21 Dose: 1 squirt Discontinued Medications Acetaminophen (Tylenol) 975 mg PO NOW [facility] Last Admin: 08/15/19 07:05 Dose: 975 mg Albuterol (Proventil Neb Soln) 2.5 mg NEB ONETIME PRN PRN Reason: improve oxygenation Stop: 08/15/19 18:00 Cefazolin Sodium (Ancef) Confirm Administered Dose 2 gm .ROUTE .STK-MED ONE Stop: 08/15/19 06:52 Last Admin: 08/15/19 09:56 Dose: 2 gm Cefazolin Sodium (Ancef) Confirm Administered Dose 2 gm .ROUTE .STK-MED ONE Stop: 08/15/19 07:30 Morphine Sulfate 8 mg/Epinephrine HCl 0.3 mg/Cefuroxime Sodium 750 mg/Ketorolac Tromethamine 30 mg/Sodium Chloride 7.9 ml 0 mg .XX ASDIRECTED PRN PRN Reason: Pain Dexamethasone (Dexamethasone) Confirm Administered Dose 20 mg .ROUTE .STK-MED ONE Stop: 08/15/19 06:52 Diclofenac Sodium (Voltaren 1% Gel) 0 gm TOP QID [facility] Last Admin: 08/15/19 16:32 Dose: Not Given Diphenhydramine HCl (Benadryl) 25 mg IVPUSH Q6H PRN PRN Reason: pruritis Stop: 08/15/19 18:00 Ephedrine Sulfate (Ephedrine Sulfate) 5 mg IVPUSH ASDIRECTED PRN PRN Reason: Hypotension Stop: 08/15/19 18:00 Epinephrine HCl (Adrenalin) Confirm Administered Dose 1 mg .ROUTE .STK-MED ONE Stop: 08/15/19 06:39 Famotidine (Pepcid) 20 mg PO Q12H [facility] Fentanyl (Sublimaze) Confirm Administered Dose 250 mcg .ROUTE .STK-MED ONE Stop: 08/15/19 06:52 Fentanyl (Sublimaze) 50 mcg IVPUSH Q5M PRN PRN Reason: Pain Stop: 08/15/19 18:00 Glycopyrrolate () Confirm Administered Dose 1 mg .ROUTE .STK-MED ONE Stop: 08/15/19 09:05 Hydromorphone HCl (Dilaudid) 0.5 mg IVPUSH Q15M PRN PRN Reason: Pain (severe 7-10) Stop: 08/15/19 18:00 Lactated Ringer's (Ringers, Lactated) 1,000 mls @ 125 mls/hr IV ASDIRECTED [facility] Stop: 08/15/19 23:00 Last Admin: 08/15/19 06:55 Dose: 125 mls/hr Lidocaine HCl (Xylocaine-Mpf 1%) Confirm Administered Dose 2 mls @ as directed .ROUTE .STK-MED ONE Stop: 08/15/19 06:39 Lidocaine HCl (Xylocaine-Mpf 1%) Confirm Administered Dose 6 mls @ as directed .ROUTE .STK-MED ONE Stop: 08/15/19 06:52 Lactated Ringer's (Ringers, Lactated) Confirm Administered Dose 1,000 mls @ as directed .ROUTE .STK-MED ONE Stop: 08/15/19 06:52 Cefazolin Sodium/Dextrose 2 gm (/ Premix) 50 mls @ 100 mls/hr IV Q8H [facility] Stop: 08/16/19 07:59 Last Admin: 08/16/19 06:40 Dose: 100 mls/hr Phenylephrine HCl 1 mg/ Sodium (Chloride) 10.1 mls @ 1 mls/sec IV TITRATE PRN; Protocol PRN Reason: HYPOTENSION Stop: 08/15/19 18:00 Lactated Ringer's (Ringers, Lactated) Confirm Administered Dose 1,000 mls @ as directed .ROUTE .STK-MED ONE Stop: 08/15/19 09:58 Iodine (Iodine 2% Mild Tincture) Confirm Administered Dose 30 ml .ROUTE .STK- MED ONE Stop: 08/15/19 07:30 Last Admin: 08/15/19 09:54 Dose: 18 ml Lidocaine/Sodium Bicarbonate (Buffered Lidocaine 1% In Ns 8.4%) 0.25 ml IDERM ONETIME PRN PRN Reason: Prior to IV Start Stop: 08/15/19 18:00 Last Admin: 08/15/19 06:55 Dose: 0.25 ml Midazolam HCl (Versed 1 Mg/Ml) Confirm Administered Dose 2 mg .ROUTE .STK-MED ONE Stop: 08/15/19 06:52 Miscellaneous Medication (Phenylephrine 1 Mg/10 Ml-Ns) Confirm Administered Dose 1 mg IV .STK-MED ONE Stop: 08/15/19 06:53 Neostigmine Methylsulfate (Neostigmine Methylsulfate) Confirm Administered Dose 5 mg .ROUTE .STK-MED ONE Stop: 08/15/19 09:05 Ondansetron HCl (Zofran) Confirm Administered Dose 4 mg .ROUTE .STK-MED ONE Stop: 08/15/19 06:52 Ondansetron HCl (Zofran) 4 mg IVPUSH ONETIME PRN PRN Reason: Nausea/Vomiting Stop: 08/15/19 18:00 Oxycodone HCl (Oxycontin) 10 mg PO ONETIME [facility] Last Admin: 08/15/19 07:05 Dose: 10 mg Pregabalin (Lyrica) 50 mg PO ONETIME [facility] Stop: 08/15/19 12:30 Last Admin: 08/15/19 07:05 Dose: 50 mg Propofol (Diprivan 20 Ml) Confirm Administered Dose 200 mg .ROUTE .STK-MED ONE Stop: 08/15/19 06:52 Rocuronium [place] (Zemuron) Confirm Administered Dose 50 mg .ROUTE .STK-MED ONE Stop: 02/19/20 06:52 Ropivacaine (Naropin 0.5%) Confirm Administered Dose 30 ml .ROUTE .STK-MED ONE Stop: 08/15/19 06:39 Sodium Chloride (Saline Flush) 10 ml FLUSH ASDIRECTED PRN PRN Reason: Keep Vein Open Stop: 08/15/19 18:00 Tranexamic Acid (Cyklokapron) Confirm Administered Dose 1,000 mg .ROUTE .STK- MED ONE Stop: 08/15/19 07:30 Last Admin: 08/15/19 10:02 Dose: 1,000 mg Vancomycin HCl (Vancomycin) Confirm Administered Dose 1 gm .ROUTE .STK-MED ONE Stop: 08/15/19 07:30 Last Admin: 08/15/19 10:02 Dose: 1 gm
--- NOTE | 2019-08-17 07:29 | PCM48HPAN ---
Post Anesthesia Note - EVALUATION WITHIN 48HRS OF ANESTHETIC Vital Signs in Normal Range: Yes Patient Participated in Evaluation: Yes Respiratory Function Stable: Yes Airway Patent: Yes Cardiovascular Function Stable: Yes Hydration Status Stable: Yes Pain Control Satisfactory: Yes Nausea and Vomiting Control Satisfactory: Yes Mental Status Recovered: Yes Vital Signs: Last Vital Signs Temp 37.2 C 08/16/19 11:27 Pulse 86 08/16/19 07:57 Resp 16 08/16/19 11:27 BP 100/56 L 08/16/19 11:27 Pulse Ox 93 L 08/16/19 07:57 - COMMENTS/OBSERVATIONS Free Text/Narrative:: Patient discharged from medical surgical unit. Patient discharged prior to anesthesia's availability to assess.
--- NOTE | 2019-08-20 07:09 | PCM.OPNOTE ---
- General Post-Op/Procedure Note Date of Surgery/Procedure: 08/15/19 Operative Procedure(s): right reverse total shoulder arthroplasty Pre Op Diagnosis: right shoulder rotator cuff tear arthropathy Post-Op Diagnosis: Same Anesthesia Technique: General ET Tube, Regional Block Primary Surgeon: Sree Christina Anesthesia Provider: Lillian Pino Floor Service Worker [place]: Yesi Fountain Floor Service Worker Spring: Dina Purdy EBL in mLs: 450 Complications: None Condition: Good Free Text/Narrative:: 7 stem +6 liner 36+4
--- NOTE | 2019-08-20 10:35 | OR ---
DATE OF OPERATION: 08/15/2019 SURGEON: Sree Christina MD OPERATION PERFORMED: Right reverse total shoulder arthroplasty. PREOPERATIVE DIAGNOSIS: Right shoulder rotator cuff tear arthropathy. POSTOPERATIVE DIAGNOSIS: Right shoulder rotator cuff tear arthropathy. ANESTHESIA: General endotracheal intubation with regional interscalene block. ANESTHESIA PROVIDER: Lillian Pino CRNA. BUS TRANSPORTATION MANAGER: Yesi Fountain PA-C, and Dina Purdy LPN. ESTIMATED BLOOD LOSS: 450 mL. COMPLICATIONS: None. CONDITION: Stable. IMPLANTS: 1. Arthrex size 7 humeral stem 135 degree. 2. Arthrex +6 mm liner. 3. Arthrex concentric small glenoid baseplate. 4. Arthrex 36, +4 glenosphere. DESCRIPTION OF PROCEDURE: The patient was identified in the preoperative holding area. Proper site was marked and identified by the surgeon. The patient was taken back to operating theater where after adequate anesthesia the patient's right upper extremity was sterilely prepped and draped in a usual sterile fashion. OR time-out was performed. The patient received 2 g IV Ancef. The patient was placed in reverse Trendelenburg position and standard deltopectoral incision was made. This was taken down to the cephalic vein. Cephalic vein was identified and was retracted laterally with the deltoid. The subdeltoid and subacromial spaces were cleared of any adhesions. The anterior humeral circumflex vessels were then ligated, and a pectoralis tenodesis was performed with a #2 FiberWire. Resection of the biceps tendon was done just superiorly to this and was taken all the way back to the level of the glenoid and was resected. Peel down of the subscapularis tendon was then done at this time and the humeral head was dislocated. The humeral head cut was then completed and found to be adequate. Attention was turned to the glenoid. Anterior and posterior retractors were placed on the glenoid. Circumferential removal of the labrum as well as any remaining biceps was done. Guidepin was then placed in a center-center position with roughly 10 degrees of inferior tilt. A 25 mm baseplate reamer was then utilized and then the peripheral reamer for a 36 glenosphere was utilized. It was found to have adequate bony purchase with good bleeding cancellous bone. The central peg hole was then drilled and then the tap was used for the peg. The glenoid baseplate was then screwed onto place and was found to have adequate bicortical purchase, and inferior and superior locking screws were then placed and then the 36, +4 glenosphere was placed and the set screw was tightened. Attention was turned to the humerus. Starting with size 5 broach, I was able to broach up to a size 7 which was found to be rotationally and vertically stable. The central peg was then placed and the reamer was used to the proximal humerus. Trial implants with a +3 were then utilized. The patient was noted to have just a slight amount of laxity, so +6 trial was placed and had adequate tension on both the conjoint tendon and deltoid and full range of motion with no signs of instability. C-arm fluoroscopy was then utilized making sure that all components were properly aligned and throughout range of motion. C-arm fluoroscopy was utilized. All were adequate and were anatomically aligned. The trial components were then dislocated. The size 7 humeral stem 135 degrees were constructed on the back table with a +6 liner and was impacted into the humerus. The humerus was then relocated and again the C-arm fluoroscopy was utilized making sure all parts were properly seated and no humeral fracture. 1 L dilute Betadine solution was then irrigated through the shoulder along with 3 L of pulse lavage irrigation with Ancef. Topical tranexamic acid and vancomycin powder were applied. 2-0 Vicryl was used subcutaneously, and Prineo was used for the skin. The patient tolerated the procedure well and was sent to PACU in stable condition. LETITIA /[id number]
== END 2019-08-16 12:17 | disposition home or self-care (01) | DRG 483 ==
LOC: JD.MS 06:33 → EDSTATUS 09:45
PROVIDERS: ADMIT Orthopaedic Surgery; ATTEND Orthopaedic Surgery
PROC: 0RRJ00Z Replacement of Right Shoulder Joint with Reverse Ball and Socket Synthetic Substitute, Open Approach (ICD-10-PCS; principal; 2019-08-15)
DX: M19.011 Primary osteoarthritis, right shoulder (principal); N18.3 Chronic kidney disease, stage 3 (moderate); K21.9 Gastro-esophageal reflux disease without esophagitis; M10.9 Gout, unspecified; I12.9 Hypertensive chronic kidney disease with stage 1 through stage 4 chronic kidney disease, or unspecified chronic kidney disease; E03.9 Hypothyroidism, unspecified; G47.00 Insomnia, unspecified; G89.29 Other chronic pain; M54.5 Low back pain; E78.5 Hyperlipidemia, unspecified; I87.2 Venous insufficiency (chronic) (peripheral); K59.09 Other constipation; D64.9 Anemia, unspecified; M48.9 Spondylopathy, unspecified; M85.80 Other specified disorders of bone density and structure, unspecified site; Z88.0 Allergy status to penicillin; Z88.8 Allergy status to other drugs, medicaments and biological substances; Z88.6 Allergy status to analgesic agent; Z79.890 Hormone replacement therapy; Z79.899 Other long term (current) drug therapy
CPT/HCPCS: 36415; 73020-26-RT; 73020-RT; 76000; 76000-26; 80053; 85027; 87641; 94760; 97110-GP; 97161-GP; 97165-GO; 97535-GO; A9270-GY; C1713; C1776; J0171; J0690; J1100; J2001; J2250; J2270; J2405; J2704; J2795; J3010; J3370; J7120

== ENCOUNTER 2019-09-14 00:31 | Emergency (ER) | payer MEDICARE, BC ==
--- NOTE | 2019-09-14 01:37 | EDM.PDOC ---
ED HPI GENERAL MEDICAL PROBLEM - General Chief Complaint: ENT Problem Stated Complaint: NOSE BLEED Time Seen by Provider: 09/14/19 01:15 Source of Information: Reports: Patient, Family () History Limitations: Reports: No Limitations - History of Present Illness INITIAL COMMENTS - FREE TEXT/NARRATIVE: Mrs. Azul is a very pleasant 69-year-old woman with a past medical history significant for hypertension, dyslipidemia, chronic kidney disease, and allergic rhinitis, for which she uses a nasal steroid spray, who now presents to the ED with painless right-sided epistaxis that began around 23:30 tonight. No trauma. No prior history of epistaxis. The patient mentioned that she underwent right shoulder surgery on 08/15/2019. She was on aspirin postoperatively, but stopped taking it a few days ago. She is not on any other anticoagulants. Here in the ED, the patient is found to be hemodynamically stable, afebrile, saturating 97% on room air. The patient's PCP is Shirley Padilla NP. She does not recall the name of her [facility] in [place]. She did not receive an influenza vaccine this season, and declined an offer to receive one here today. - Related Data Allergies Allergy/AdvReac Type Severity Reaction Status Date / Time amoxicillin Allergy Hives Verified 09/14/19 00:45 clavulanic acid Allergy Hives Verified 09/14/19 00:45 Home Meds: Home Meds Allopurinol [Zyloprim] 300 mg PO DAILY 12/29/16 [History] Furosemide 40 mg PO DAILY PRN 12/29/16 [History] Levothyroxine Sodium 50 mcg PO DAILY 12/29/16 [History] Potassium Chloride 20 meq PO BID PRN 12/29/16 [History] atorvaSTATin Calcium [Atorvastatin Calcium] 20 mg PO DAILY 12/29/16 [History] traZODone HCl [Trazodone HCl] 50 mg PO BEDTIME 12/29/16 [History] Cholecalciferol (Vitamin D3) [Vitamin D3] 5,000 unit PO DAILY 08/14/19 [History] Diclofenac Sodium [Voltaren 1% Gel] 1 dose TOP QID PRN 08/14/19 [History] Fluticasone Propionate [Flonase] 1 spray NASBOTH BID 08/14/19 [History] Losartan/Hydrochlorothiazide [Losartan-HCTZ 100-12.5 MG] 1 tab PO DAILY [History] Omeprazole 40 mg PO DAILY 08/14/19 [History] Triamcinolone Acetonide [Triamcinolone Acetonide 0.1% Crm] 1 dose TOP BID [History] Acetaminophen/oxyCODONE [Percocet 325-5 MG] 1 - 2 tab PO Q4H PRN #60 tablet [Rx] Aspirin [Ecotrin EC] 325 mg PO DAILY #30 tab.ec 08/16/19 [Rx] Cyclobenzaprine [Flexeril] 10 mg PO TID PRN #40 tablet 08/16/19 [Rx] Docusate Sodium [Colace] 100 mg PO BID cap 08/16/19 [Rx] Sennosides [Senna] 8.6 mg PO BID PRN tablet 08/16/19 [Rx] bisacodyL [Dulcolax] 5 mg PO DAILY PRN tablet 08/16/19 [Rx] Past Medical History HEENT History: Reports: Allergic Rhinitis Other HEENT History: wears glasses, has lower dentures Cardiovascular History: Reports: High Cholesterol, Hypertension Gastrointestinal History: Reports: GERD Genitourinary History: Reports: Chronic Renal Insuffiency, Urinary Incontinence (stress incontinence) Musculoskeletal History: Reports: Gout (suspected, not tested), Osteoarthritis Psychiatric History: Reports: Other (See Below) (Insomnia) Endocrine/Metabolic History: Reports: Hypothyroidism Hematologic History: Reports: Anemia - Past Surgical History HEENT Surgical History: Reports: Naso-Sinus Surgery, Oral Surgery (wisdom teeth extraction) Cardiovascular Surgical History: Reports: Varicose GI Surgical History: Reports: Colonoscopy, EGD Neurological Surgical History: Reports: Lumbar Spine (x 4, incl L4/L5 microdiscectomy & fusion) Musculoskeletal Surgical History: Reports: Arthroscopic Knee (left), Knee Replacement (left), Shoulder Surgery (right, open) Social & Family History - Family History Family Medical History: Noncontributory - Tobacco Use Smoking Status *Q: Never Smoker - Caffeine Use Caffeine Use: Reports: Coffee - Alcohol Use Alcohol Use History: Yes Alcohol Use Frequency: Rarely - Recreational Drug Use Recreational Drug Use: No - Living Situation & Occupation Living situation: Reports: , with Spouse Occupation: Retired ED ROS ENT - Review of Systems Review Of Systems: Comprehensive ROS is negative, except as noted in HPI. ED EXAM, ENT - Physical Exam Exam: See Below Exam Limited By: No Limitations General Appearance: Alert, WD/WN, No Apparent Distress Eye Exam: Bilateral Eye: EOMI, Normal Inspection Ears: Normal External Exam Nose: Other (The left nostril is essentially clean. There is wet blood within the left nostril, but no active bleeding was seen. The nostril was cleaned with a cotton tip swab, with no visible bleeding.) Mouth/Throat: Normal Inspection, Normal Gums, Normal Lips, Normal Oropharynx, Normal Teeth Head: Atraumatic, Normocephalic Course - Vital Signs Last Recorded V/S: Last Vital Signs Temp 36.8 C 09/14/19 00:38 Pulse 93 09/14/19 00:38 Resp 16 09/14/19 00:38 BP 143/84 H 09/14/19 00:38 Pulse Ox 97 09/14/19 00:38 - Re-Assessments/Exams Free Text/Narrative Re-Assessment/Exam: 09/14/19 01:35 At this time, it appears that the patient's nose has stopped bleeding, however, when she moves her head around, she continues to have some blood emanating from the right nostril. This is likely previously bled blood, but I have asked her to remain upright for about 10 minutes, after which I will recheck her to see if there is any evidence of continued bleeding. 09/14/19 01:53 After about 10 minutes of sitting upright, the patient still had some blood emanating from her right nostril. She is convinced that her nose is still bleeding, but on reexamination, I see absolutely no active bleeding. I once again had the patient gargle and spit. I will reevaluate her in about 10 minutes. 09/14/19 02:19 I reevaluated the patient. No new bleeding, and on examination, no blood seen in her right nostril or posterior oropharynx. I will discharge her home with the recommendation that she apply a thin film of petroleum jelly to each side of her nasal septum, and consider getting a humidifier for her house during the winter months. Departure - Departure Time of Disposition: 02:20 Disposition: Home, Self-Care 01 Condition: Good Clinical Impression: Right-sided epistaxis - Discharge Information *PRESCRIPTION DRUG MONITORING PROGRAM REVIEWED*: Not Applicable *COPY OF PRESCRIPTION DRUG MONITORING REPORT IN PATIENT HELENA: Not Applicable Instructions: Nosebleed, Adult Referrals: Shirley Padilla [facility] [Primary Care Provider] - Forms: ED Department Discharge Additional Instructions: You were seen in the emergency room after developing a right-sided nosebleed. The bleeding stopped on its own, and no procedures were required. Going forward, we recommend that you apply a thin film of petroleum jelly to each side of your nasal septum, once or twice a day, to help keep it moisturized. Consider also purchasing a humidifier for your house, to keep the humidity up during the winter months. If any other problems, please do not hesitate to return to the ER. Sepsis Event Note - Evaluation Sepsis Screening Result: No Definite Risk - Focused Exam Vital Signs: Vital Signs Temp Pulse Resp BP Pulse Ox 09/14/19 00:38 36.8 C 93 16 143/84 H 97 Date Exam was Performed: 09/14/19 Time Exam was Performed: 08:04
== END 2019-09-14 02:33 | disposition home or self-care (01) ==
LOC: JD.ED 00:31
CPT/HCPCS: 99282; 99283

== ENCOUNTER 2021-04-09 07:44 | Day surgery (SDC) | payer MEDICARE, BC ==
--- NOTE | 2021-04-08 07:54 | PCM.PREANE ---
Preanesthetic Assessment - Procedure Proposed Procedure: Diagnostic EGD Diagnostic Colonoscopy - Anesthesia/Transfusion/Family Hx Anesthesia History: Prior Anesthesia Without Reaction Family History of Anesthesia Reaction: No Transfusion History: No Prior Transfusion(s) Intubation History: Unknown - Review of Systems General: No Symptoms (morbidly obese) Pulmonary: No Symptoms Cardiovascular: No Symptoms (Elevated lipids, HTN), Palpitations, Edema (History of lower extremity venous insufficiency( some noted today/minimal)) Gastrointestinal: No Symptoms (Hiatal hernia, GERD), Constipation, Difficulty Swallowing Neurological: No Symptoms (chronic back pain), Headache Other: Reports: None (Chronic Iron defieciency Anemia: hgb: 9.7, CKD (GFR=40) CKD(III)), Easy Bruising, Thyroid Problems (decreased thyroid function:), Neck Pain (cervical disk disease) - Physical Assessment NPO Status Date: 04/08/21 NPO Status Time: 23:00 Vital Signs: HR: 92 Sat: 97% Temp: 98.1 Resp: 18 B/P: 131/74 Height: 1.6 m Weight: 93 kg ASA Class: 3 Mental Status: Alert & Oriented x3 Airway Class: Mallampati = 2 Dentition: Reports: Normal Dentition, Partial (bottom-removed), Caries Thyro-Mental Finger Breadths: 3 Mouth Opening Finger Breadths: 3 ROM/Head Extension: Full Lungs: Clear to Auscultation, Normal Respiratory Effort Cardiovascular: Regular Rate, Regular Rhythm, No Murmurs - Lab Values: All labs reviewed and noted and within acceptable ranges to proceed with scheduled procedure. - Allergies Allergies/Adverse Reactions: Allergies Allergy/AdvReac Type Severity Reaction Status Date / Time amoxicillin Allergy Hives Verified 04/09/21 08:21 clavulanic acid Allergy Hives Verified 04/09/21 08:21 - Anesthesia Plan Pre-Op Medication Ordered: None - Acknowledgements Anesthesia Type Planned: MAC Pt an Appropriate Candidate for the Planned Anesthesia: Yes Alternatives and Risks of Anesthesia Discussed w Pt/Guardian: Yes Pt/Guardian Understands and Agrees with Anesthesia Plan: Yes PreAnesthesia Questionnaire HEENT History: Reports: Allergic Rhinitis Other HEENT History: wears glasses, has lower dentures Cardiovascular History: Reports: High Cholesterol, Hypertension Other Cardiovascular History: peripheral venous insufficiency Respiratory History: Reports: SOB Gastrointestinal History: Reports: GERD Genitourinary History: Reports: Chronic Renal Insuffiency, Urinary Incontinence (stress incontinence) Other Genitourinary History: CKD III REGISTERED NURSE CARDIOVASCULAR ICU History: Reports: None Musculoskeletal History: Reports: Gout (suspected, not tested), Osteoarthritis Other Musculoskeletal History: cervical disc disease, lumbar degenerative disc disease, gangion cyst, sacroiliac pain Neurological History: Reports: Other (See Below) Other Neuro History: cervical disc disease, lumbar degnerative disc disease, neck pain Psychiatric History: Reports: Other (See Below) (Insomnia) Other Psychiatric History: insomnia Endocrine/Metabolic History: Reports: Hypothyroidism Hematologic History: Reports: Anemia Immunologic History: Reports: None Oncologic (Cancer) History: Reports: None Dermatologic History: Reports: Other (See Below) Other Dermatologic History: venous stasis dermatitis, perirectal abcess with I&D - Past Surgical History HEENT Surgical History: Reports: Naso-Sinus Surgery, Oral Surgery (wisdom teeth extraction) Cardiovascular Surgical History: Reports: Varicose GI Surgical History: Reports: Colonoscopy, EGD Neurological Surgical History: Reports: Lumbar Spine (x 4, incl L4/L5 microdiscectomy & fusion) Musculoskeletal Surgical History: Reports: Arthroscopic Knee (left), Knee Replacement (left), Shoulder Surgery (right, open) - HOME MEDS Home Medications: Home Meds Allopurinol [Zyloprim] 300 mg PO DAILY 12/29/16 [History] Furosemide 40 mg PO DAILY PRN 12/29/16 [History] Levothyroxine Sodium 50 mcg PO DAILY 12/29/16 [History] Potassium Chloride 20 meq PO BID PRN 12/29/16 [History] atorvaSTATin Calcium [Atorvastatin Calcium] 20 mg PO DAILY 12/29/16 [History] Diclofenac Sodium [Voltaren 1% Gel] 1 dose TOP QID PRN 08/14/19 [History] Fluticasone Propionate [Flonase] 1 spray NASBOTH BID 08/14/19 [History] Omeprazole 40 mg PO DAILY 08/14/19 [History] Acetaminophen/oxyCODONE [Percocet 325-5 MG] 1 - 2 tab PO Q4H PRN #60 tablet 08/16/19 [Rx] Cyclobenzaprine [Flexeril] 10 mg PO TID PRN #40 tablet 08/16/19 [Rx] Betamethasone Valerate 1 dose TOP BID PRN 04/08/21 [History] Losartan Potassium 100 mg PO DAILY 04/08/21 [History] Zolpidem Tartrate [Zolpidem Tartrate ER] 12.5 mg PO BEDTIME PRN 04/08/21 [ History] hydroCHLOROthiazide [Hydrochlorothiazide] 12.5 mg PO DAILY 04/08/21 [History] - CURRENT (IN HOUSE) MEDS Current Meds: Current Medications Lactated Ringer's (Ringers, Lactated) 1,000 mls @ 125 mls/hr IV ASDIRECTED NICOLAS Stop: 04/09/21 23:00 Lidocaine/Sodium Bicarbonate (Lidocaine 1%/Sod Bicarbonate In Ns 8.4% 1 Ml Syringe) 0.25 ml IDERM ONETIME PRN PRN Reason: Prior to IV Start Stop: 04/09/21 18:00 Sodium Chloride (Sodium Chloride 0.9% 10 Ml Syringe) 10 ml FLUSH ASDIRECTED PRN PRN Reason: Keep Vein Open Stop: 04/09/21 18:00
[~2021-04-09 07:44] MED LIST changes: -Acetaminophen 325 MG Tab PO SCH; +Lactated Ringers 1,000 ML IV SCH; +Lidocaine 1% 4 ML ONE; +Lidocaine 1%/Sod Bicarbonate in NS 8.4% 1 ML Syringe IDERM PRN; +Midazolam 1 MG/ML 2 ML SDV ONE; -Pregabalin 25 MG Cap PO SCH; +Propofol 200 MG/20 ML SDV ONE; +Sodium Chloride 0.9% 10 ML Syringe FLUSH PRN; +fentaNYL 100 MCG/2 ML SDV ONE; -oxyCODONE ER 10 MG TAB.ER PO SCH
[2021-04-09] MEDS ORDERED: Sodium Chloride 0.9% 1,000 ML IV SCH (07:45)
[2021-04-09] MEDS ORDERED: Propofol 200 MG/20 ML SDV ONE (09:21)
--- NOTE | 2021-04-09 09:46 | PCM.PRNOTE ---
- Free Text/Narrative Note: Date: 04/09/2021 Procedure: diagnostic esophagogastroduodenoscopy and colonoscopy Indication: iron deficiency anemia Endoscopist: Noe Kovacs MD Findings: large hiatal hernia, with no evidence of Robles ulcers or esophagitis. Stomach and duodenum otherwise appeared normal. Bowel prep was fair and cecum reached. No polyps identified, though effluent appeared blood-tinged. Minor diverticular disease. Detailed Report: The patient was taken to the endoscopy suite and placed in left lateral decubitus position. Timeout was performed, a bite-block was placed and monitored anesthesia care was initiated. The endoscope was inserted into the mouth and advanced to the duodenum easily. Duodenum appeared grossly normal, and a sample mucosal biopsy was obtained with cold forceps. Scope was withdrawn into the stomach, there appeared to be linear streaking erythema converging at the pylorus but otherwise the gastric mucosa appeared relatively normal. A sample of antral mucosa was obtained with cold forceps. There was no evidence of peptic ulcer disease. The scope was retroflexed and a large hiatal hernia was evident. The defect measured several centimeters, and a substantial portion of the proximal stomach was herniated. There did not appear to be any sign of inflammation or ulceration of the herniated stomach. The scope was withdrawn into the esophagus. The Z-line appeared normal and there was no gross evidence of esophagitis. A sample biopsy of distal esophageal mucosa was obtained with cold forceps. Air was suctioned from the stomach prior to withdrawal of the scope. No other esophageal pathology was noted as the scope was withdrawn. Next, attention was turned to colonoscopy. The anus appeared normal. Digital rectal exam was unremarkable. The colonoscope was inserted and advanced all the way to the cecum. The colon was redundant and due to patient body habitus advancing the scope was challenging. However, after positioning the patient supine and with abdominal maneuvers the cecum was successfully reached. The appendiceal orifice was visualized. Prep was fair, there was a large amount of fluffy effluent with particulate matter. The fluid appeared slightly blood- tinged but there was no gross evidence of hemorrhage within the colon. No polyps were identified. The scope was slowly withdrawn and mucosal surfaces carefully inspected. There were a few small scattered diverticula in the sigmoid colon. No significant hemorrhoidal disease was appreciated. Scope was removed after suctioning the rectum. The patient tolerated the procedure well.
--- NOTE | 2021-04-09 09:47 | PCM48HPAN ---
Post Anesthesia Note - EVALUATION WITHIN 48HRS OF ANESTHETIC Vital Signs in Normal Range: Yes Patient Participated in Evaluation: Yes Respiratory Function Stable: Yes Airway Patent: Yes Cardiovascular Function Stable: Yes Hydration Status Stable: Yes Pain Control Satisfactory: Yes Nausea and Vomiting Control Satisfactory: Yes Mental Status Recovered: Yes Vital Signs: Last Vital Signs Temp Pulse 92 04/09/21 07:50 Resp 16 04/09/21 07:50 BP 131/74 04/09/21 07:50 Pulse Ox 97 04/09/21 07:50 0943 80 16 97.3 132/87 93% - COMMENTS/OBSERVATIONS Free Text/Narrative:: no complaints-
[2021-04-09 10:07] VITALS: BP 132/87; PULSE 82
[2021-04-09] MEDS ORDERED: FLU Vacc QS2021(65UP)/MF59C/PF 60 MCG/0.5 ML Syringe IM ONE (12:00)
== END 2021-04-09 10:12 | disposition home or self-care (01) ==
LOC: JD.SDS 07:44
PROVIDERS: ATTEND Surgery
DX: K57.30 Diverticulosis of large intestine without perforation or abscess without bleeding (principal); D50.9 Iron deficiency anemia, unspecified; K29.50 Unspecified chronic gastritis without bleeding; K31.89 Other diseases of stomach and duodenum; K44.9 Diaphragmatic hernia without obstruction or gangrene; I12.9 Hypertensive chronic kidney disease with stage 1 through stage 4 chronic kidney disease, or unspecified chronic kidney disease; N18.30 Chronic kidney disease, stage 3 unspecified; K21.9 Gastro-esophageal reflux disease without esophagitis; E78.5 Hyperlipidemia, unspecified; E03.9 Hypothyroidism, unspecified; Z88.8 Allergy status to other drugs, medicaments and biological substances; Z79.899 Other long term (current) drug therapy; Z79.890 Hormone replacement therapy; Z98.890 Other specified postprocedural states
CPT/HCPCS: 43239; 45378; 88305; J2250; J2704; J3010; J7030; 00813; 99100

== ENCOUNTER 2025-04-16 09:26 | Observation (INO) | payer MEDICARE, BC ==
[~2025-04-16 09:26] MED LIST changes: -Lactated Ringers 1,000 ML IV SCH; -Lidocaine 1% 4 ML ONE; -Lidocaine 1%/Sod Bicarbonate in NS 8.4% 1 ML Syringe IDERM PRN; -Midazolam 1 MG/ML 2 ML SDV ONE; +Ondansetron 4 MG/2 ML SDV ONE; -Propofol 200 MG/20 ML SDV ONE; +dexmedeTOMIDine HCl 200 MCG/2 ML SDV ONE; -fentaNYL 100 MCG/2 ML SDV ONE; +fentaNYL 250 MCG/5 ML SDV ONE; +propofoL 500 MG/50 ML 50 ML ONE
[2025-04-16] MEDS ORDERED: Dexamethasone 4 MG/ML 5 ML MDV ONE (09:59)
[2025-04-16] MEDS: Lactated Ringers 1,000 ML IV SCH (10:00)
[2025-04-16] MEDS ORDERED: ePHEDrine 50 MG/ML SDV ONE (10:03)
[2025-04-16] MEDS: EPINEPHrine 1 MG/ML SDV ONE (11:06)
[2025-04-16] MEDS ORDERED: EPINEPHrine 1 MG/ML SDV ONE (11:22)
[2025-04-16] MEDS ORDERED: Lactated Ringers 1,000 ML ONE (12:21)
[2025-04-16] MEDS ORDERED: fentaNYL 100 MCG/2 ML SDV IVPUSH PRN (12:37)
[2025-04-16] MEDS ORDERED: Ondansetron 4 MG/2 ML SDV IVPUSH PRN (12:37)
[2025-04-16] MEDS ORDERED: Ondansetron 4 MG/2 ML SDV IV PRN (13:27)
[2025-04-16] MEDS ORDERED: Lactated Ringers 1,000 ML IV SCH (13:30)
[2025-04-16] MEDS ORDERED: Benzocaine/Cetylpyridinium/Menthol Lozenge MUCMEM PRN (13:30)
[2025-04-16] MEDS ORDERED: diphenhydrAMINE 50 MG/ML SDV IVPUSH PRN (13:30)
[2025-04-16] MEDS: Sodium Chloride 0.9% 10 ML Syringe FLUSH SCH (18:58)
[2025-04-17 04:27] LABS: MEAN PLATELET VOLUME 12.0 fl (9.4-12.3); NRBC ABSOLUTE 0.00 (0.00-0.02); NRBC PERCENT 0.0 % (0.0-0.2); PLATELET COUNT,PLT 210 K/mm3 (150-400); RED BLOOD CELL COUNT 2.58 M/mm3 (4.10-5.30); WHITE BLOOD CELL COUNT,WBC 11.72 K/mm3 (3.9-11.3)
[2025-04-17 04:52] LABS: BLOOD UREA NITROGEN,BUN 15.0 mg/dL (7-18); CARBON DIOXIDE,CO2 26.0 mEq/L (21-32); CHLORIDE,CL 105.0 mEq/L (98-107); CREATININE 1.1 mg/dL (0.55-1.02); EST CRCL DRUG DOSING (CG) 32.23 mL/min; ESTIMATED GFR 53.0 mL/min (>60); GLUCOSE RANDOM 125.0 mg/dL (70-99); POTASSIUM,K 4.1 mEq/L (3.5-5.1); SODIUM,NA 141.0 mEq/L (136-145)
[2025-04-17] MEDS: Ketorolac 15 MG/ML SDV IVPUSH SCH (08:27)
[2025-04-17 12:34] VITALS: BP 135/70; PULSE 94
== END 2025-04-17 12:33 | disposition home or self-care (01) ==
LOC: JD.MS 09:26 → INTOOBSV 09:26 → UNDOADMOB 09:26 → JD.MS 12:27 → UNDODISOB 04-17 12:33
PROVIDERS: ADMIT Surgery; ATTEND Surgery
DX: K44.9 Diaphragmatic hernia without obstruction or gangrene (principal); D50.9 Iron deficiency anemia, unspecified; I12.9 Hypertensive chronic kidney disease with stage 1 through stage 4 chronic kidney disease, or unspecified chronic kidney disease; N18.32 Chronic kidney disease, stage 3b; K21.9 Gastro-esophageal reflux disease without esophagitis; E03.9 Hypothyroidism, unspecified; E78.5 Hyperlipidemia, unspecified; Z79.890 Hormone replacement therapy; Z79.899 Other long term (current) drug therapy
CPT/HCPCS: 36415; 43246; 43280; 80048; 85027; 94761; A9270; C1781; J0169; J0690; J1100; J2003; J2405; J2704; J3010; J7120; 00790; 99100; J0665; J1171; J1885; J3490